=== PATIENT | female | born 1970 | race Caucasian/White ===

== ENCOUNTER 2024-10-19 11:49 | Emergency (ER) | payer MEDICAID, SELFPAY ==
[2024-10-19] VITALS (9 sets, daily range): BP systolic 121–145; BP diastolic 73–96; PULSE 66–94; RESP 16–18; TEMP 36.9–37.8; O2SAT 97–99
--- NOTE | ~2024-10-19 | CT_ITS ---
CT soft tissue neck w con Ordering provider: Jose Denton MD History: 54 years Female with . Dysphagia post spinal fusion x4 days prior . Comparison: None. Technique: CT soft tissues neck was performed with contrast. . The dose-length product was 419.56 mGy -cm. Findings: LOWER HEAD: The visualized brain parenchyma, optic globes/orbits and mastoids are normal. The visua lized paranasal sinuses are well aerated. SALIVARY GLANDS: Symmetric THYROID: Unremarkable SUPRAHYOID DEEP SPACES: Unremarkable CAROTID ARTERIES: Patent and symmetric JUGULAR VEINS: Patent and symmetric TONSILS: Unremarkable ORAL CAVITY: Partially obscured by dental amalgam but normal as visualized. PHARYNX, LARYNX AND TRACHEA: Patent and normal. Prevertebral soft tissue swelling is identified, prim arily to the right of midline without significant airway compromise. SUPERFICIAL SOFT TISSUES: Size asymmetry of both the musculature and superficial soft tissues of the right neck when compared to the left. The airway is patent. THORACIC INLET/VISUALIZED UPPER CHEST: Unremarkable. SKELETAL: Plate and screw anterior fixation of the spine at levels C3, C4, C5 and C6. Age appropriate degenerative changes. IMPRESSION: Prevertebral soft tissue swelling primarily to the right of midline without airway compromise. Size asymmetry of both the musculature and superficial soft tissues of the right neck when compared t o the left, primarily within the infraglottic larynx. Reviewed, dictated and finalized at location A. UNICATIONS ELECTRICIAN SUPERVISOR IMPRESSION: Prevertebral soft tissue swelling primarily to the right of midline without air way compromise. Size asymmetry of both the musculature and superficial soft tissues of the righ t neck when compared to the left, primarily within the infraglottic larynx.
--- OUTSIDE RECORDS SUMMARY | 2024-10-19 11:52 | XMS_ITS | Clinical Summary ---
Author Organization [facility] Address [address] [place] [address] Phone Care Team Providers Care Dietary Supervisor Name Role Phone Nomfc, External Provider Primary Care Provider U navailable Allergies Active Allergy Reactions Criticality Noted Date Comments Sulfasalazine Abdominal Pain Medium 08/08/2017 Tetracyclines Hives High 08/08/2017 Medications citalopram (CeleXA) 40 mg tablet Take 40 mg by mouth daily. Active levothyroxine 50 mcg tablet Take 50 mcg by mouth daily radiator specialist. Active clonazePAM (KlonoPIN) 1 mg tablet Take 1 mg by mouth 1 time daily as needed for Anxiety. Active cholecalciferol , Vitamin D3, 2,000 unit Tablet Take 4,000 Units by mouth daily. Active HYDROcodone-octavia taminophen (NORCO) 5-325 mg tablet Take 2 Tablets by mouth every 6 hours as needed for Pain. Max Daily Amount: 8 Tablets 20 Tablet 10/31/2017 Active ibuprofen (MOTRIN) 600 mg tablet Take 1 Tablet (600 mg) by mouth every 6 hours as needed for Other (See Comment) (Pain or Inflammation ). 60 Tablet 1 10/31/2017 Active docusate sodium (COLACE) 100 mg capsule Take 1 Capsule (100 mg) by mouth 2 times daily. 60 Capsule 1 10/31/2017 Active Active Problems Problem Noted Date Diagnosed Date Abnormal uterine bleeding (AUB) 10/30/2017 Social History Tobacco Use Types Packs/Day Years Used Date Smoking Tobacco: Every Day Cigarettes Smokeless Tobacco: Never Alcohol Use Standard Drinks/Week Comments Yes 0 (1 standard drink = 0.6 oz pur e alcohol) rare Comments No Sex and Gender Information Value Date Recorded Sex Assigned at Not on file Legal Sex Female 3:55 PM RN REHABILITATION Gender Identity Not on file Sexual Orientation Not on file Last Filed Vital Signs Vital Sign Reading Time Taken Comments Blood Pressure 101/63 10/31/2017 8:29 AM RN REHABILITATION Pulse 87 10/31/2017 8:29 AM RN REHABILITATION Temperature 37 C (98.6 F) 10/31/2017 8:29 AM RN REHABILITATION Respiratory Rate 16 10/31/2017 8:29 AM RN REHABILITATION Oxygen Saturation 99% 10/31/2017 8:29 AM RN REHABILITATION Inhaled Oxygen Concentration - - Weight 78.9 kg (174 lb) 10/30/2017 5:42 AM RN REHABILITATION Height 162.6 cm (5' 4 ) 10/30/2017 5:42 AM RN REHABILITATION Body Mass Index 29.87 10/30/2017 5:42 AM RN REHABILITATION Plan of Treatment Health Maintenance Due Date Last Done Comments DTAP/TDAP/TD VACCINES (1 - Tdap) 1988 HEPATITIS B VACCINES (1 of 3 - 19+ 3-dose series) 05/04 CERVICAL CANCER SCREENING 1999 BREAST CANCER SCREENING 2009 COLORECTAL SCREENING 2014 Colorectal Cancer Screening 2014 FIT-DNA Q 3 years 2014 FIT/FOBT Q 1 year 2014 Flex Sig/CT Colonography Q 5 years 2014 ZOSTER VACCINE (1 of 2) 2019 INFLUENZA VACCINE (#1) 2024 Medical Devices Implanted Type Area Ophthalmic Photographer Device Identifier Shelf Expiration Date Model / Serial / Lot Hemostat Geeta Surg Mph Pwd 3gm [id number] - [id number] Implanted:Qt y: 1 on 10/30/2017 by America Jones MD at [facility] Hemostatic N/A: Pelvis CR [employer] [id number] 06/30/2022 [id number] / / [id number] Insurance Member Subscriber Plan / Payer (Ef fective 2021-Present) Name:Fariba Bocanegra Relation to Subscriber:Self Name:Fariba Bocanegra Payer ID:[id number] (NAIC) Type:O Address: [facility] [id number] [place] [id number] Advance Directives For more information, please contact: [phone] * Full Code (Latest Code Status on File) Date Activated Date Inactivated Comments 10/30/2017 5:31 AM 10/31/2017 11:35 AM Care Teams Dietary Supervisor Relationship Specialty Start Date End Date Nom, External Provider PCP - General 10/23/17
--- NOTE | 2024-10-19 11:56 | ED.NECK ---
HPI - Neck Pain/Injury General Chief Complaint: Unspecified Stated Complaint: trouble swallowing Time Seen by Provider: 10/19/24 11:51 Source: patient Mode of arrival: ambulatory Limitations: no limitations History of Present Illness HPI Narrative: 54-year-old female with cervical vertebral instability status post C6-7 fusion, had C3-C6 fusion 10/16/2024. Postoperatively the patient had increased drainage from the wound. Today she presents to the ED with -- inability to swallow. she noticed it this morning as she was attempting to swallow her medication. -- Ongoing drainage from the incision site. -- No change in speech. No fever or chills. Her postoperative pain is improving. MD complaint: neck pain and other ( Dysphagia) Onset (ago): hour(s) ( 6 hours) Place: home Severity: moderate Relieving factors: none Exacerbating factors: none Context: other ( status post neck fusion) Associated symptoms: difficulty swallowing Treatments prior to arrival: none Related Data Allergies Allergy/AdvReac Type Severity Reaction Status Date / Time Sulfa (Sulfonamide Allergy Mild Unknown Verified 10/19/24 12:19 Antibiotics) tetracycline Allergy Mild Unknown Verified 10/19/24 12:19 Review of Systems Review of Systems: All systems reviewed & are unremarkable except as noted in HPI and below Constitutional: Constitutional: Reports as per HPI and Reports no additional constitutional complaints Eyes: Eyes: Reports as per HPI and Reports no additional eye complaints ENT: Reports system reviewed and no additional complaints, except as documented and Reports as per HPI Comments: dysphagia Cardiovascular: Cardiovascular: Reports as per HPI and Reports no additional cardiovascular complaints Respiratory: Respiratory: Reports as per HPI and Reports no additional respiratory complaints Gastrointestinal: Gastrointestinal: Reports as per HPI and Reports no additional gastrointestinal complaints Genitourinary: Genitourinary: Reports no additional female genitourinary complaints and Reports as per HPI Musculoskeletal: Musculoskeletal: Reports no additional musculoskeletal complaints and Reports as per HPI Comments: postop neck pain Integumentary/Breasts: Skin/Breast: Reports system reviewed and no additional complaints, except as docu and Reports as per HPI Neurologic: Reports system reviewed and no additional complaints, except as documented and Reports as per HPI Psychiatric: Psychiatric: Reports no additional psychiatric complaints and Reports as per HPI Endocrine: Endocrine: Reports no additional endocrine complaints and Reports as per HPI Hematologic/Lymphatic: Hematologic/Lymphatic: Reports no additional hematologic/lymphatic complaints and Reports as per HPI Allergic/Immunologic: Allergic/Immunologic: Reports no additional allergic/immunologic complaints and Reports as per HPI [facility] Past Medical History Medical History (Updated 10/19/24 @ 16:08 by Jose Denton MD) Cervical vertebral fusion Exam Narrative: afebrile blood pressure 139/96 Const: General: no acute distress Orientation/consciousness: patient oriented x3 Limitations: no limitations HENMT: Head: normal to inspection Ears: external ears normal Face/Nose/Sinus: Normal external nose present Face and sinus: normal facial exam Mouth: Yes Normal oral and palatal mucosa present Teeth and gingiva: dentition normal Throat: posterior oropharynx normal Eyes: Conjunctivae: conjunctivae normal Pupils: Equal, round and reactive pupils present EOM: EOMs intact bilaterally Direct Ophthalmoscopy: no photophobia Neck: Other: lower neck incision site is draining clear liquid. wound looks healthy. Chest: Chest palpation & inspection: normal inspection of the chest Resp: Effort & Inspection: normal respiratory effort Auscultation: clear to auscultation bilaterally Cardio: Rate: regular rate Rhythm: regular rhythm GI: GI Palp: Yes Soft to palpation Auscultation: normal bowel sounds : General: Yes no CVA tenderness Back/Spine/Pelvis: Back: no CVA tenderness Skin: General skin exam: normal color Rashes: no rashes Wounds: no wounds Neuro: General: patient oriented x3, moves all extremities, no meningeal signs and CN's II-XI intact bilaterally Cranial nerves: Yes Nystagmus not present Speech: normal speech Gait exam (Neuro): Normal gait present Extrem: General: normal to inspection and no clubbing, cyanosis or edema Psych: Mental Status: mental status grossly normal Affect: normal affect Attitude: cooperative Course Course Emergency Course: Status post cervical fusion dysphagia\ CT of the soft tissues of the neck revealed-- swelling of the right prevertebral soft tissue and the right infra glottic larynx. No event compromise noted. discussed with spine surgeon Dr. Clark. advised the patient to transfer to [facility] in [facility]. patient has had the wound and blood cultures done. Patient received 1 dose of Zosyn. Patient is leaving AMA. The patient has been explained the risks and consequences involved in leaving this facility at this time. Advised about the benefits of treatment and following up with her surgeon. The patient is mentally stable and is capable of making this decision. Vital Signs Vital signs: Vital Signs Temperature 36.9 C 10/19/24 11:52 Pulse Rate 94 10/19/24 11:52 Respiratory Rate 18 10/19/24 11:52 Blood Pressure 139/96 H 10/19/24 11:52 Pulse Oximetry 98 10/19/24 11:52 Oxygen Delivery Room Air 10/19/24 11:52 Temperature 37.8 C H 10/19/24 14:39 Pulse Rate 76 10/19/24 14:39 Respiratory Rate 16 10/19/24 14:39 Blood Pressure 124/91 H 10/19/24 14:39 Pulse Oximetry 97 10/19/24 14:39 Oxygen Delivery Room Air 10/19/24 14:39 MDM - Neck Pain/Injury MDM Narrative Medical decision making narrative: Postoperative right neck swelling without any airway compromise. Dysphagia watery discharge from the incision site Differential Diagnosis Differential diagnosis: Likely strain of neck muscle and other ( postoperative swelling) Lab Data Attestation: I reviewed the patient's lab results. 10/19/24 12:21 10/19/24 12:21 Labs: Lab Results 10/19/24 Range/Units 12:21 WBC 10.7 (4.8-10.8) K/mm3 RBC 3.41 L (4.20-5.40) M/mm3 Hgb 10.9 L (12.0-15.0) g/dL Hct 33.8 L (35.0-49.0) % MCV 99.1 (78.0-102.0) fL MCH 32.0 H (27.0-31.0) pg MCHC 32.2 (32-36) g/dL RDW 12.0 (11.6-14.4) % Plt Count 253 (150-420) K/mm3 MPV 9.1 L (9.2-11.8) fl Immature Gran % (Auto) 0.4 H (0.0-0.0) % Neut % (Auto) 71.4 H (50.0-70.0) % Lymph % (Auto) 19.4 (18.0-42.0) % [place] % (Auto) 6.6 (2.0-11.0) % Eos % (Auto) 1.7 (1.0-6.0) % Baso % (Auto) 0.5 (0.0-1.0) % Lymph # (Auto) 2.07 (1.10-4.50) K/mm3 [place] # (Auto) 0.70 (0.10-0.90) K/mm3 Eos # (Auto) 0.18 (0.02-0.50) K/mm3 Baso # (Auto) 0.05 (0.00-0.10) K/mm3 Abs Immat Gran (auto) 0.04 H (0.00-0.00) K/mm3 Absolute Neuts (auto) 7.63 H (1.70-7.20) K/mm3 Absolute Nucleated RBC 0.00 (0.00-0.00) K/mm3 Nucleated RBC % 0.0 (0-0.0) % Sodium 139 (136-145) mmol/L Potassium 4.0 (3.5-5.1) mmol/L Chloride 100 (98-108) mmol/L Carbon Dioxide 31 (21-32) mmol/L Anion Gap 8 (4-12) mmol/L BUN 6 L (7-18) mg/dL Creatinine 0.76 (0.55-1.02) mg/dL Estim Creat Clear Calc 63 ml/min Estimated GFR > 60 (59 - ) Glucose 90 (70-99) mg/dL Calculated Osmolality 285 (285-295) mOsm/kg Lactic Acid 0.8 (0.4-2.0) mmol/L Calcium 9.2 (8.5-10.1) mg/dL Total Bilirubin 0.5 (0.00-1.00) mg/dL AST 12 L (15-37) U/L ALT 14 (14-59) U/L Alkaline Phosphatase 65 (46-116) U/L Total Protein 7.5 (6.4-8.2) g/dL Albumin 3.5 (3.4-5.0) g/dL Discharge Plan Discharge Clinical Impression: Neck swelling, Status post cervical spinal fusion, Drainage from surgical wound Patient Disposition: Left Against Medical Advice Condition: Stable Instructions: Antibiotic Form, Dysphagia (ED) Patient Language: Welsh Follow-up/Referrals: Rob,Marta Mcintosh MD [Primary Care Provider] - Time of Disposition: 16:08
[2024-10-19] MEDS: LACTATED RINGERS 500 ML 999 ML IV CONT (12:14)
[2024-10-19 12:24] LABS: Basophils Absolute Auto 0.05 K/mm3 (0.00-0.10); Basophils Percent Auto 0.5 % (0.0-1.0); Eosinophils Absolute Auto 0.18 K/mm3 (0.02-0.50); Eosinophils Percent Auto 1.7 % (1.0-6.0); Hematocrit 33.8 % (35.0-49.0); Hemoglobin 10.9 g/dL (12.0-15.0); Immature Granulocyte Absolute 0.04 K/mm3 (0.00-0.00); Immature Granulocyte Percent A 0.4 % (0.0-0.0); Lymphocytes Absolute Auto 2.07 K/mm3 (1.10-4.50); Lymphocytes Percent Auto 19.4 % (18.0-42.0); Mean Corpuscular HGB Conc 32.2 g/dL (32-36); Mean Corpuscular Volume 99.1 fL (78.0-102.0); Mean Platelet Volume 9.1 fl (9.2-11.8); Monocytes Percent Auto 6.6 % (2.0-11.0); Neutrophils Absolute Auto 7.63 K/mm3 (1.70-7.20); Neutrophils Percent Auto 71.4 % (50.0-70.0); Platelet Count Result 253 K/mm3 (150-420); Red Blood Count 3.41 M/mm3 (4.20-5.40); White Blood Count 10.7 K/mm3 (4.8-10.8)
--- OUTSIDE RECORDS SUMMARY | 2024-10-19 12:33 | XMS_ITS | Clinical Summary ---
Author Organization [facility] Address [address] [place] [address] Phone Care Team Providers Care Printer'S Assistant Name Role Phone Nomfc, External Provider Primary Care Provider U navailable Allergies Active Allergy Reactions Criticality Noted Date Comments Sulfasalazine Abdominal Pain Medium 08/08/2017 Tetracyclines Hives High 08/08/2017 Medications citalopram (CeleXA) 40 mg tablet Take 40 mg by mouth daily. Active levothyroxine 50 mcg tablet Take 50 mcg by mouth daily rand butter. Active clonazePAM (KlonoPIN) 1 mg tablet Take [...] on file Legal Sex Female 3:55 PM BRAKE LINING MAKER Gender Identity Not on file Sexual Orientation Not on file Last Filed Vital Signs Vital Sign Reading Time Taken Comments Blood Pressure 101/63 10/31/2017 8:29 AM BRAKE LINING MAKER Pulse 87 10/31/2017 8:29 AM BRAKE LINING MAKER Temperature 37 C (98.6 F) 10/31/2017 8:29 AM BRAKE LINING MAKER Respiratory Rate 16 10/31/2017 8:29 AM BRAKE LINING MAKER Oxygen Saturation 99% 10/31/2017 8:29 AM BRAKE LINING MAKER Inhaled Oxygen Concentration - - Weight 78.9 kg (174 lb) 10/30/2017 5:42 AM BRAKE LINING MAKER Height 162.6 cm (5' 4 ) 10/30/2017 5:42 AM BRAKE LINING MAKER Body Mass Index 29.87 10/30/2017 5:42 AM BRAKE LINING MAKER Plan of Treatment Health Maintenance Due Date [...] (#1) 2024 Medical Devices Implanted Type Area Sheet Roller Operator Device Identifier Shelf Expiration Date Model / Serial / Lot Hemostat Geeta Surg Mph Pwd 3gm [id number] - [id number] Implanted:Qt y: 1 on 10/30/2017 by America Jones MD at [facility] Hemostatic N/A: Pelvis CR [employer] [id number] 06/30/2022 [id number] / / [id number] Insurance Member Subscriber Plan / Payer (Ef fective 2021-Present) Name:Fariba Bocanegra Relation to Subscriber:Self Name:Fariba Bocanegra Payer ID:[id number] (NAIC) Type:O Address: [facility] [address] [place] [id number] Advance Directives For more information, please contact: [phone] * Full Code (Latest Code Status on File) Date Activated Date Inactivated Comments 10/30/2017 5:31 AM 10/31/2017 11:35 AM Care Teams Printer'S Assistant Relationship Specialty Start Date End Date Nom, External Provider PCP - General 10/23/17
--- OUTSIDE RECORDS SUMMARY | 2024-10-19 12:33 | XMS_ITS | Encounter Summary ---
Author Organization [facility] Address [address] [place] [address] Care Team Providers Care Waste Chopper Name Role Phone Marta Rivas MD Primary Care Provider [phone] Reason for Referral * (Routine) - New Request Specialty Diagnoses / Procedures Referred By Contac t Referred To Contact Procedures OT Eval and Treat [facility] [address] [place] [address] Phone: tel: Referral ID Status Reason Start Date Expiration Date V isits Requested Visits Authorized [id number] New Request 10/17/2024 10/17/2025 1 1 IAL EDUCATION BUS DRIVER * (Routine) - Canceled Specialty Diagnoses / Procedures Referred By Contac t Referred To Contact Procedures PT Eval and Treat [facility] [address] [place] [address] Phone: tel: Referral ID Status Reason Start Date Expiration Date V isits Requested Visits Authorized [id number] Canceled 10/17/2024 10/17/2025 1 1 IAL EDUCATION BUS DRIVER Reason for Visit * Auth/Cert (Routine) Specialty Diagnoses / Procedures Referred By Contac t Referred To Contact Diagnoses CERVICAL MYELOPATHY Procedures ARTHRODESIS, ANTERIOR INTERBODY CERV BELOW C2 ARTHRODESIS ANTERIOR INTERBODY BELOW C2 EA ADD'L INSERT VERT FIX DEV,ANT,4-7 SGMTS INSJ BIOMECHANICAL DEVICE DISCECTOMY AND FUSION SPINAL ANTERIOR CERVICAL C3-6 Andrew Foster MD [address], [address] [place] [address] Phone: tel: fax: Referral ID Status Reason Start Date Expiration Date Visits Re quested Visits Authorized [id number] 1 1 Encounter Details Date Type Department Care Team (Latest Contact Info) Description 10/16/2024 6:22 AM SPECIAL EDUCATION BUS DRIVER - 10/18/2024 11:[address] [facility] Hospital Encounter [facility] [address] [place] [address] Andrew Foster MD [address], [address] [place] [address] Discharge Disposition: Home or Self Care (Routine Discharge) Social History Tobacco Use Types Packs/Day Years Used Date Smoking Tobacco: Former Cigarettes Smokeless Tobacco: Current Tobacco Cessation:Ready to Q uit: Not Asked; Counseling Given: Not Answered Comments:Vape, patient instructed not to vape 24 hours prior to procedure Alcohol Use Standard Drinks/Week Comments Not Currently 0 (1 standard drink = 0.6 oz pur e alcohol) [facility] Utilities Answer Date Recorded In the past 12 months has [facility] [employer], gas, oil, or water [employer] threatened to shut off services in your home? No 10/16/2024 Humiliation, Afraid, Rape, and Kick questionnair e Answer Date Recorded Within the last year, have y ou been afraid of your partner or ex-partner? No 10/16/2024 Within the last year, have y ou been humiliated or emotionally abused in other ways by your partner or ex-partner? No Within the last year, have y ou been kicked, hit, slapped, or otherwise physically hurt by your partner or ex-partner? No 10/16/2024 Within the last year, have y ou been raped or forced to have any kind of sexual activity by your partner or ex-partner? No 10/16/2024 Overall Financial Resource Strain (CARDIA) Answe r Date Recorded How hard is it for you to pa y for the very basics like food, housing, medical care, and heating? Not hard at all 10/16/2024 Hunger Vital Sign Answer Date Recorded Within the past 12 months, y ou worried that your food would run out before you got the money to buy more. Never true 10/16/19 25 Within the past 12 months, t he food you bought just didn't last and you didn't have money to get more. Never true 10/16/2024 PRAPARE - Transportation Answer Date Re corded In the past 12 months, has l ack of transportation kept you from medical appointments or from getting medications? No 10/04 In the past 12 months, has l ack of transportation kept you from meetings, work, or from getting things needed for daily living? No 10/16/2024 Housing Stability Vital Sign Answer Chacne e Recorded In the last 12 months, was t here a time when you were not able to pay the mortgage or rent on time? No 10/16/2024 In the past 12 months, how m any times have you moved where you were living? 0 10/16/2024 At any time in the past 12 m [facility], were you homeless or living in a detention (including now)? No 10/16/2024 Comments No Sex and Gender Information Value Date Recorded Sex Assigned at Female 10/16/2024 6:23 AM SPECIAL EDUCATION BUS DRIVER Legal Sex Female 5:52 PM SPECIAL EDUCATION BUS DRIVER Gender Identity Not on file Sexual Orientation Not on file documented as of this encounter Last Filed Vital Signs Vital Sign Reading Time Taken Comments Blood Pressure 141/72 10/18/2024 8:19 AM SPECIAL EDUCATION BUS DRIVER Pulse 73 10/18/2024 8:19 AM SPECIAL EDUCATION BUS DRIVER Temperature 36.8 C (98.2 F) 10/18/2024 8:19 AM SPECIAL EDUCATION BUS DRIVER Respiratory Rate 18 10/17/2024 4:36 AM SPECIAL EDUCATION BUS DRIVER Oxygen Saturation 97% 10/18/2024 8:19 AM SPECIAL EDUCATION BUS DRIVER Inhaled Oxygen Concentration - - Weight 64.9 kg (143 lb) 10/16/2024 7:15 AM SPECIAL EDUCATION BUS DRIVER Height 162.6 cm (5' 4 ) 10/16/2024 7:15 AM SPECIAL EDUCATION BUS DRIVER Body Mass Index 24.55 10/16/2024 7:15 AM SPECIAL EDUCATION BUS DRIVER documented in this encounter Functional Status * Question Answer Date of Assessment Author Status Do you have serious difficul ty walking or climbing stairs? No 10/16/2024 6:59 AM Kylie Smiley RN Active * Question Answer Date of Assessment Author Status Do you have difficulty dressing or bathing? No 10/16/2024 6:05 PM Shady Mayer RN A ctive Because of a physical, mental, or emotional condition, do you have difficulty doing errands alone such as visiting a doctor's office or shopping? No 10/16/2024 6:05 PM Shady Mayer RN Active * Are you deaf or do you have serious difficulty hearing Answer Date of Assessment Author Status No 10/16/2024 6:05 PM Shady Mayer RN Active * Are you blind or do you have serious difficulty seeing, even when wearing glasses? Answer Date of Assessment Author Status No 10/16/2024 6:05 PM Shady Mayer RN Active * Do you have serious difficulty walking or climbing stairs? Answer Date of Assessment Author Status No 10/16/2024 6:59 AM Kylie Smiley RN Active * Do you have difficulty dressing or bathing? Answer Date of Assessment Author Status No 10/16/2024 6:05 PM Shady Mayer RN Active * Because of a physical, mental, or emotional condition, do you have difficulty doing errands alone such as visiting a doctor's office or shopping? Answer Date of Assessment Author Status No 10/16/2024 6:05 PM hSady Mayer RN Active documented as of this encounter Mental Status * Question Answer Entry Date Author Status Because of a physical, mental, or emotional condition, do you have serious difficulty concentrating, remembering, or making decisions? No 10/16/2024 6:05 PM Shady Mayer RN A ctive * Because of a physical, mental, or emotional condition, do you have serious difficulty concentrating, remembering, or making decisions? Answer Entry Date Author Status No 10/16/2024 6:05 PM Shady Mayer RN Active documented in this encounter Medications at Time of Discharge buPROPion SR (WELLBUTRIN SR) 100 MG 12 hr tablet Take 1 tablet (100 mg total) by mouth daily. 10/13/2022 clonazePAM 1 MG tablet Take 1 tablet (1 mg total) by mouth 2 (two) times daily as needed for Anxiety. 02/14/2022 cyclobenzaprine (FLEXERIL) 10 MG tablet Take 1 tablet (10 mg total) by mouth 3 (three) times daily as needed for Muscle Spasms. 30 tablet 10/18/2024 famotidine (PEPCID) 40 MG tablet Take 1 tablet (40 mg total) by mouth nightly. gabapentin (NEURONTIN) 300 MG capsule Take 1 capsule (300 mg total) by mouth 3 (three) times daily. 90 capsule 10/18/2024 HYDROcodone-acetamin ophen (NORCO) 5-325 MG tabletIndications:Ac lisa Pain < 7 Day Supply Take 1-2 tablets by mouth every 4 (four) hours as needed. Indications: Acute Pain < 7 Day Supply 30 tablet 10/18/2024 levothyroxine 50 MCG tablet Take 1 tablet (50 mcg total) by mouth daily. 12/16/2021 ondansetron (ZOFRAN-ODT) 4 MG disintegrating tablet Take 1 tablet (4 mg total) by mouth every 8 (eight) hours as needed for Nausea. 20 tablet 01/09/2023 sertraline 100 MG tablet Take 1 tablet (100 mg total) by mouth 2 (two) times a day. 02/13/2022 traZODone 50 MG tablet Take 1 tablet (50 mg total) by mouth nightly as needed for Sleep. 02/20/2022 documented as of this encounter Progress Notes * Justina Delgadillo, PT - 10/17/2024 3:10 PM CSTSummary: PT Evaluation PT Initial Evaluation Discharge Recommendation: home with assistance Activity Recommendation for esl teacher: up with one 10/17/24 1400 Therapy Visit Ordering Provider MD Foster PT Received On 10/17/24 Subjective Pt supine in bed upon entering room 928. Pt agreeable to mobility. Reason for admission Pt s/p anterior discectomy and fusion C3-6 10/16. PMH: neck pain and arm weakness... order eval and treat activity up with assist Verified Two Patient Identifiers Yes Patient consents to therapy Yes Acute Inpatient PT Time Calculation PT Start Time 1408 PT Stop Time 1429 PT Time Calculation (min) 21 min Precautions Spine Precautions Bending;Lifting;Twisting General Precautions Fall Risk Other hemo vac Prior Function PLOF Comments PT lives with mom in a one story house with 5 TAM with HR. Pt was I with all self care and mobility. 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 Pain Pain Yes Pain Score 8 Location back of the neck; RN called and gave meds Interventions Re-direction;Re-positioning Activity Tolerance Limiting Factors to Endurance Dizziness;Pain Cognition Overall Cognitive Status WFL Orientation Level Oriented X4 Following Commands Follows all commands and directions without difficulty Comments PT alert and oriented. Sensation Additional Comments intact to light touch in bilat LE Overall Extremity Assessment Lower Extremity gross strength bilat LE 5/5 hip flex, knee ext, ankle DF Bed Mobility Supine to Sit Independent TRANSFERS Sit to Stand SBA/supervision Gait Gait Assistance SBA/supervision Assistive Device None Distance Ambulated (ft) 600 ft Other (Comment) Pt ambulates with step through pattern, unsteady throughout with lateral veering L/R. No significant LOB, but several episodes pt reports dizzy off feeling, requires lateral stepping for balance correction. Stairs Stair Management Assistance Contact guard assist Stair Management Technique One rail L;Alternating pattern Number of Stairs 3 Other (Comment) Ascending witih second step pt with a near LOB and posterior lean, uses hand rail for balance correction, close CGA. Reciprocal pattern. PT educated to slow down, take time, take one step at a time if feeling unsteady. Balance Sitting - Static Independent Sitting - Dynamic Independent Standing - Static SBA Standing - Dynamic SBA Other (Comment) no use of device, unsteady throughout session with lateral step and veering for balance correction. Pt reporting feeling dizzy or Off . Assessment Personal Factors/Comorbidities Impacting Care 3-4 personal factors/comorbidities Examination of Body Systems High (at least 4 Elements) Objectives of Body Systems Impaired balance;Impaired stair negotiation;Decreased LE strength;Decreased endurance Clinical Presentation of Patient Unpredictable and unstable characteristics Complexity Level of Evaluation High Prognosis Good Discharge Recommendation PT Recommendation Home with assistance Plan PT Treatments/Interventions Gait Training;Manual Therapy;Therapeutic Exercises;Therapeutic Activities;Neuromuscular re-education;Patient/family training PT Frequency 6 times/week PT - Next Appointment 10/17/24 If this is the last treatment note,it will serve as the discharge summary Yes End of Session End of Session Safety Call light within reach;Nursing aware of session;Transfer status education Assessment: Pt is 54 yo female admitted with spine fusion. Prior to admission pt was independent with all ADLs and functional mobility. Pt demonstrates impaired activity tolerance, balance, LE strength and overall functional mobility. Pt would benefit from further therapy during admission to address deficits and maximize safety and independence with functional mobility. Anticipate pt to return home with family assist when medically stable. The below POC to be followed the duration of this admission. Pt. will be able to perform supine to/from sitting at EOB with Independent to improve mobility. 2. Pt. will be able to perform sit to/from standing with Independent using wheeled walker to improve independence. 3. Pt. will be able to ambulate 600 feet with Independent using wheeled walker to help improve strength and functional independence. 4. Pt. will be able to maintain static sitting balance for 5-10 minutes with Independent to improveindependence. 5. Pt. will be able to maintain dynamic sitting balance on soft surface with Independent to improvefunctional mobility. 6. Pt. will be able to maintain static standing balance 5-10 minutes with Independent using wheeledwalker to improve independence. 7. Pt. will be able to maintain dynamic standing balance during side-stepping L/R and marching withIndependent using wheeled walker to improve functional mobility. 8. Pt. will be able to ascend/descend 3 steps with Modified Sweet using handrail(s) to increase strength and to safely access home at D/C. Education: Primary Learners Name: Fariba Bocanegra Primary Language of learner: [place]guill[place] Patient was educated on precautions exercises transfers ADLs balance bed mobility equipment therapy plan gait safety stair training. Education was completed one to one verbal hands-on demonstration this date. Preference of learning new concepts one to one verbal hands-on demonstration Barriers to education this date were physical impairment. Response to education this date verbalized understanding. IAL EDUCATION BUS DRIVER * Magnus Roa - 10/17/2024 2:40 PM CST Patient assessed for emotional/spiritual needs and well-being, Patient's Disposition/People present: patient alert / mother presented Patient's support system: parent and family Worship Affiliation/Spiritual Background: Scientologist Michelle community: [employer] - OTHER Notification of michelle community desired: No [2] Needs identified: Concern for health condition Interventions: Spiritual Care facilitated patient in attaining their spiritual goals by: Spiritual: Providing listening Offering prayer/blessing Emotional: Demonstrating acceptance of patient and mother Offering emotional support to patient and mother Follow up Needed: No Patient indicates contentment regarding emotional/spiritual well-being and will request a induction coordination power engineer if needs arise. IAL EDUCATION BUS DRIVER * Charlene Guillen, OT - 10/17/2024 2:29 PM CSTSummary: OT Eval OT Initial Evaluation Discharge Recommendation: home with assistance No skilled OT Activity Recommendation for esl teacher: up to chair for all meals, walking into the bathroom and walking in the halls with SBA using no AD 10/17/24 1408 Therapy Visit OT Received On 10/17/24 Reason for admission Pt s/p anterior discectomy and fusion C3-6 10/16. PMH: neck pain and arm weakness... order eval and treat activity up with assist Ordering Provider MD Foster Verified Two Patient Identifiers Yes Patient consents to therapy Yes Acute Inpatient OT Time Calculation OT Start Time 1408 OT Stop Time 1429 OT Time Calculation (min) 21 min Precautions Spine Precautions Bending;Lifting;Twisting General Precautions Fall Risk Other hemovac drain anterior neck; c-spine precautions Subjective Subjective RN gave ok prior to therapy evaluations. Pt agreeable to therapy evaluations and provided PLOF information. Prior Function PLOF Comments Pt lives with mom in a one story house with 5 TAM with HR. Pt was I with all self care and mobility. 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 Pain Pain Yes Pain Score 8 Location posterior neck Interventions Informed RN;Re-direction;Re-positioning (RN gave pain meds and muscle relaxer prior to mobility) Objective Objective Pt seen in room 928. Pt in bed upon ent. Gait belt used for all functional mobility. Pt up in chair with call light nearby and chair alarm on upon ext. Pt's mom present throughout, but sleeping. Activity Tolerance Endurance Quality Good Limiting Factors to Endurance Dizziness;Pain Vision - Basic Assessment Current Vision Wears glasses Vision - Complex Assessment Additional Comments No new visual deficits reported Cognition Overall Cognitive Status WFL Arousal/Alertness Appropriate responses to stimuli Attention Span Appears intact Memory Appears intact Orientation Level Oriented X4 Following Commands Follows all commands and directions without difficulty Safety Judgment Good awareness of safety precautions Awareness of Errors Good awareness of errors made Deficits Fully aware of deficits Problem Solving Able to problem solve independently Comments Pt alert and oriented. Pt pleasant and cooperative throughout. Pt with good understanding of c-spine precautions, as she has had previous c-spine surgeries. Overall Extremity Assessment Upper Extremity WFL B UE within precautions. Pt reports prior R UE weakness, although functional this date Hand Function Hand Dominance Right Gross Grasp Functional Coordination Functional Sensation Light Touch No apparent deficits ADL Eating/Feeding Assistance Independent;Sitting in chair Eating/Feeding Comment Pt reporting some difficulty swallowing. RN aware Grooming Assistance Stand by;Standing at sink Grooming Deficit Wash/dry hands LE Dressing Assistance Independent;In bed LE Dressing Deficit Don/doff R sock;Don/doff L sock Toileting Assistance Stand by Bed Mobility Supine to Sit Independent Functional Transfers Sit to Stand SBA/supervision Toilet Transfers Grab bars;Supervision Functional Mobility Pt completed functional room/bathroom/hallway mobility to simulate home and community environments with SBA using no AD. Pt with occasional sway in balance, but no overt LOB and able to self correct. Balance Sitting - Static Independent Sitting - Dynamic Independent Standing - Static SBA Standing - Dynamic SBA Proprioception Proprioception No apparent deficits Assessment Occupational Profile and History Complexity Moderate (Expanded) Performance Deficit Level Low (1-3 deficits) Clinical Decision Making Moderate (min/mod modifications) Complexity Level of Evaluation Low Prognosis Good OT Assess/Eval Other (Comment) Pt is a 54-year-old female admitted for planned ACDF C3-C6. OT evaluation completed 10/17/2024. Pt is completing all ADLS and functional mobility with minimal difficulty. Pt voices no concerns for ADLS or functional mobility upon discharge. Will defer to PT for balancetraining. No further skilled OT needs identified. OT will sign off at this time. Pt would benefit from return home wtih increased assist as needed. Thank you for the consult. Please send new orders if pt has a change in medical status. Patient/Family Training Other (Comment) Pt educated on c-spine precautions, gentle neck ROM, relaxing UE muscles, positioning for pain relief, and use of ice/heat. Pt verbalized understanding. Discharge Recommendation OT Recommendation Home with assistance;No skilled OT No Skilled OT No acute OT goals identified Plan Progress Discontinue OT OT - Next Appointment 10/17/24 If this is the last treatment note, it will serve as the discharge summary Yes End of Session End of Session Safety Call light within reach;Family/friend present with patient;Nursing aware of session;Transfer status education Education: Patient was educated on precautions therapy plan safety. Preference of learning new concepts verbal Barriers to education this date were none. Response to education this date verbalized understanding. By: NO Jackman, OTR/L; 10/17/24 IAL EDUCATION BUS DRIVER * Kimmy Abdi RN - 10/17/2024 2:27 PM CST 10/17/24 1424 Interdisciplinary Group Conference Team Members Present Physician;Case/Care management;Nursing (Dr. Foster) Patient Current Status Paient current status Inpatient Barriers to Discharge Inpatient Review Barriers to Discharge Inpatient Complex - Social and/or Medical Complex - Social and/or Medical follow up CM following post surgical recovery plan to include pt/oteval. Not yet ordered this am/CM has placed order. Pt was assigned to Pt. No PT notes as of this writing. 1428 IAL EDUCATION BUS DRIVER IAL EDUCATION BUS DRIVER IAL EDUCATION BUS DRIVER documented in this encounter Nursing Notes * Iván Granados RN - 10/16/2024 12:34 PM CST Patient had 3 earrings in her right ear that she was unable to remove. I was able to remove 1 of them. We put tape over her right ear. She also had a lip ring that she could not remove and we also could not remove. We also placed tape over the lip ring. IAL EDUCATION BUS DRIVER documented in this encounter OR Notes * Op Note - Andrew Foster MD - 10/16/2024 3:21 PM CST OPERATIVE RECORD DATE OF PROCEDURE: 09/04/24 SURGEON: Andrew Foster MD CNC MILLING MACHINE OPERATOR: Duncan Beard PREOPERATIVE DIAGNOSES: Herniated disk with myelopathy and radiculopathy C3-4, C4-5, C5-6 POSTOPERATIVE DIAGNOSES: Herniated disk with myelopathy and radiculopathy C3-4, C4-5, C5-6 PROCEDURE: Arthrodesis, anterior interbody, including disc space preparation, discectomy, osteophytectomy and decompression of spinal cord and nerve roots; C3-4(66890) Anterior instrumentation; vertebral segments (C3-C4-C5-C6) (57605) Arthrodesis, anterior interbody, including disc space preparation, discectomy, osteophytectomy and decompression of spinal cord and nerve roots; additional interspace C4-5 (04014) Arthrodesis, anterior interbody, including disc space preparation, discectomy, osteophytectomy and decompression of spinal cord and nerve roots; additional interspace C5-6 (30624) Placement of biomechanical interbody device without integral anterior instrumentation C3-4 Placement of biomechanical interbody device without integral anterior instrumentation C4-5 Placement of biomechanical interbody device without integral anterior instrumentation C5-6 INDICATIONS:This is a patient who presents with severe pain in their neck radiating into their arm.An MRI scan showed that the patient had large osteophytes and disc herniations compressing the spinal cord at C3-4, C4-5, C5-6 It was decided to take her to the OR for a decompression and fusion. I have had a long discussion with the patient and family concerning the nature of the problem, the alternatives to surgery and the risks and benefits of surgery. We discussed the benefits of surgery which include relief of radiculopathy, neck pain and myelopathic symptoms. We discussed the risks of surgery which include the risks of infection, hemorrhage, spinal cord damage (ranging anywhere froma minor, temporary deficit to a major, permanent deficit), anesthesia complications and medical complications. We discussed the risk of non-fusion, the risk of hoarseness (which could be either temporary or permanent), and the risk of difficulty swallowing (which could be either temporary or permanent). We also discussed the risks of not having surgery. They understand all of this and agree to surgery. OPERATIVE TECHNIQUE: The patient was brought to the operating room and a surgical time out was performed to establish the identity of the patient, the procedure to be performed (including the laterality), the drugs or devices to be used and deep vein thrombosis prophylaxis measures taken. General anesthesia was induced. The patient was positioned on the operating table in the supine position. The patient's neck was shaved and prepped and draped in the usual sterile fashion. A curvilinear incision was made at approximately the level of C4-C5 and hemostasis was achieved with bipolar coagulation and retraction. A dissection was made of the soft tissue with the Bovie knife, through the platysma until the plane between the sternocleidomastoid and strap muscles was identified. A dissection was made in this plane to the anterior part of the spine. The levels were confirmed using X Ray. Thelongus coli muscles were dissected off the anterior part of the spine and the self-retaining retractors were put into place so that the blades were anchored on the longus coli muscles. The dissection continued at C3-4. Disc material and osteophytes were removed with currettes and kerrison rongeurs. The pin distraction system was then used to distract this level. Additional disc material was then removed. The posterior longitudinal ligament was visualized. Also, osteophytes, both superior and inferior were observed. The high-speed drill was used to drill off the inferior part ofthe end plate of C3 and the superior part of the end plate of C4. The osteophytes were also drilledboth in the midline and bilaterally into the foramen. These were then removed with the microsurgical Kerrison rongeur. The posterior longitudinal ligament was then incised with microsurgical dissection and removed with microsurgical Kerrison rongeurs. This allowed for an excellent decompression of the thecal sac and nerve roots, including a bilateral foramenotomy. A titanium biomechanical interbody device that did not have integral anterior instrumentation was then sized and selected and filled with osteogenic bone matrix. This was placed into the defect and the distraction was removed. The graft was found to be firmly in place. The dissection continued at C4-5. Disc material and osteophytes were removed with currettes and kerrison rongeurs. The pin distraction system was then used to distract this level. Additional disc material was then removed. The posterior longitudinal ligament was visualized. Also, osteophytes, both superior and inferior were observed. The high-speed drill was used to drill off the inferior part ofthe end plate of C4 and the superior part of the end plate of C5. The osteophytes were also drilledboth in the midline and bilaterally into the foramen. These were then removed with the microsurgical Kerrison rongeur. The posterior longitudinal ligament was then incised with microsurgical dissection and removed with microsurgical Kerrison rongeurs. This allowed for an excellent decompression of the thecal sac and nerve roots, including a bilateral foramenotomy. A titanium biomechanical interbody device that did not have integral anterior instrumentation was then sized and selected and filled with osteogenic bone matrix. This was placed into the defect and the distraction was removed. The graft was found to be firmly in place. The dissection continued at C5-6. Disc material and osteophytes were removed with currettes and kerrison rongeurs. The pin distraction system was then used to distract this level. Additional disc material was then removed. The posterior longitudinal ligament was visualized. Also, osteophytes, bothsuperior and inferior were observed. The high-speed drill was used to drill off the inferior part of the end plate of C5 and the superior part of the end plate of C6. The osteophytes were also drilled both in the midline and bilaterally into the foramen. These were then removed with the microsurgical Kerrison rongeur. The posterior longitudinal ligament was then incised with microsurgical dissection and removed with microsurgical Kerrison rongeurs. This allowed for an excellent decompression ofthe thecal sac and nerve roots, including a bilateral foramenotomy. A titanium biomechanical interbody device that did not have integral anterior instrumentation was then sized and selected and filled with osteogenic bone matrix. This was placed into the defect and the distraction was removed. The graft was found to be firmly in place. Hemostasis was achieved. A titanium plate was then sized and selected and placed into the wound. This was secured to the body of C3, C4, C5, C6 using titanium screws for anterior fixation because our interbody devices did not have their own integral anterior instrumentation. An x-ray showed excellent placement of the graftand plate and screws. Hemostasis was achieved. The muscle was closed with 3-0 Vicryl and the subcutaneous tissue was closed with 3-0 Vicryl. The skin was closed with 4-0 Monocryl and Steri-strips. A sterile dressing was applied and the patient was allowed to awaken from general anesthesia. The patient was brought to the recovery room in good condition. FINDINGS: Herniated disk with myelopathy and radiculopathy C3-4, C4-5, C5-6 ESTIMATED BLOOD LOSS: 100 mL SPECIMEN(S) REMOVED: Disc and bone [employer]UC[employer] DRIVER documented in this encounter Plan of Treatment Not on file documented as of this encounter Procedures Procedure Name Priority Date/Time Associated Diagnosis Comments HEMOGLOBIN AND HEMATOCRIT Routine 10/16/2024 6:12 PM [employer] DRIVER BASIC METABOLIC PANEL Routine 10/16/2024 6:12 PM [employer] DRIVER SURG XR FLUOROSCOPY Routine 10/16/2024 2 :28 PM [employer]UCATION [employer] DRIVER documented in this encounter Results * (ABNORMAL) BASIC METABOLIC PANEL (10/16/2024 6:12 PM [employer] EDUCATION [employer] DRIVER) SODIUM S/P/B 139 136 - 145 MMOL/L 10/16/2024 6:51 PM [employer] DRIVER [facility] POTASSIUM S/P/B 3.7 3.5 - 5.1 MMOL/L 10/16/2024 6:51 PM [facility] CHLORIDE S/P/B 108 97 - 115 MMOL/L 10/16/2024 6:51 PM [facility] CO2 27.0 21.0 - 32.0 MMOL/L 10/16/2024 6:51 PM [facility] GLUCOSE 126(H) 74 - 106 MG/DL 10/16/2024 6:51 PM [facility] BUN 10 7 - 18 MG/DL 10/16/2024 6:51 PM [facility] CREATININE S/P/B 0.90 0.55 - 1.02 MG/DL 10/16/2024 6:51 PM [facility] CALCIUM S/P/B 8.9 8.5 - 10.1 MG/DL 10/16/2024 6:51 PM [employer] DRIVER [facility] ANION GAP 4.0 2.0 - 10.0 MMOL/L 10/16/2024 6:51 PM [facility] OSMOLALITY (CALC) 289 MOSM/KG 025 6:51 PM [facility] Comment:REFERENCE RANGE NOT ESTABLISHED GFR ESTIMATE 75(L) >90 ML/MIN/1. 73 M2 10/16/2024 6:51 PM [employer] DRIVER [facility] GFR NOTES GFR REFERENCE S: 10/16/2024 6:51 PM [facility] Comment: THE ESTIMATED GFR IS CALCULATED USING THE 2020 CKD-EPI EQUATION. THE FOLLOWING CATEGORIES FOR GRADING RENAL FUNCTION ARE RECOMMENDED BY THE [employer]IETY OF NEPHROLOGY (KDIGO 2012 CLINICAL PRACTICE GUIDELINE). G1,NORMAL OR HIGH: >89 ml/min/1.73 m2 G2,MILDLY DECREASED: 60-89 ml/min/1.73 m2 G3A,MILDLY TO MODERATELY DECREASED: 45-59 ml/min/1.73 m2 G3B,MODERATELY TO SEVERELY DECREASED: 30-44 ml/min/1.73 m2 G4,SEVERELY DECREASED: 15-29 ml/min/1.73 m2 G5,KIDNEY FAILURE: <15 ml/min/1.73 m2 10/16/2024 6:12 PM [employer] EDUCATION [employer] DRIVER us Duncan Beard MD LABORATORY Final Resu lt [facility] [address] [place] [id number], [id number] * HEMOGLOBIN AND HEMATOCRIT (10/16/2024 6:12 PM [employer] EDUCATION [employer] DRIVER) HGB 12.1 12.0 - 16.0 G/DL 10/16/2024 6:21 PM [employer] DRIVER [facility] HCT 36.8 36.0 - 47.0 % 10/16/2024 6:21 PM [employer] EDUC[employer] DRIVER [facility] 10/16/2024 6:12 PM [employer]UCATION [employer] DRIVER Duncan Beard MD LABORATORY Final Resu lt [facility] [address] [place] [address], [phone] * SURG XR FLUOROSCOPY (10/16/2024 2:28 PM [employer] EDUCATION [employer] DRIVER) Anatomical Region Laterality Modality Undefined Radio Fluoroscop y 10/16/2024 12:4 9 PM [employer]UCATION [employer] DRIVER Narrative 10/16/2024 12:49 PM [employer] EDUCATION [employer] DRIVER This report does not contain a radiologist's interpretation. Please review associated procedure and/or operative report. Procedure Note Angela Garcia MD - 10/16/2024 This report does not contain a radiologist's interpretation. Please review associated procedure and/or operative report. Andrew Foster MD IMAGES ONLY Final Result documented in this encounter Visit Diagnoses Diagnosis Cervical myelopathy ([facility] HHS/HCC)- Primary Cervical spondylosis with myelopathy Cervical myopathy Myopathy, unspecified Cervical myopathy Myopathy, unspecified documented in this encounter Admitting Diagnoses Diagnosis Cervical myelopathy ([facility] HHS/HCC) Cervical spondylosis with myelopathy Cervical myopathy Myopathy, unspecified documented in this encounter Administered Medications Inactive Administered Medications - up to 3 most recent administrations Medication Order MAR Action Action Date Dose Rate Site acetaminophen (TYLENOL) tablet 650 mg 650 mg, Oral, Every 6 hours PRN, Mild pain (Scale 1 - 3), Starting on Corin 10/16/24 at 1704, Until 10/18/24 at 1332, Maximum dose of acetaminophen is 4000 mg from all sources in 24 hours., Post-Op bisacodyl (DULCOLAX) suppository 10 mg 10 mg, Rectal, Daily as needed, Constipation, Starting on Corin 10/16/24 at 1704, Until 10/18/24 at 1332, Post-Op buPROPion (WELLBUTRIN) tablet 100 mg 100 mg, Oral, Daily, First dose on Sun10/17/24 at 0900, Until Discontinued Given 10/18/2024 9:29 AM [employer]UC[employer] DRIVER 100 mg Given 10/17/2024 9:07 AM [employer]UCATION [employer] DRIVER 100 mg ceFAZolin (ANCEF) 2 g in sodium chloride 0.9 % 50 mL IVPB 2 g, Intravenous, at 200 mL/hr, Every 8 hours, 2 doses, First dose on Corin 10/16/24 at 2000, Last dose on Sun10/17/24 at 0400, Give 2 gram dose for patients less than 120 kg. PHARMACY TO ADJUST administration times based on pre-op/intra-op dose. Do NOT continue greater than 24 hours after anesthesia end time., Post-Op New Bag 10/17/2024 5:11 AM [employer] EDUCATION [employer] DRIVER 2 g 200 mL/hr New Bag 10/16/2024 8:27 PM [employer] EDUCATION [employer] DRIVER 2 g 200 mL/hr chlorhexidine (PERIDEX) 0.12 % solution 15 mL 15 mL, Mouth/Throat, Once, 1 dose, On Corin 10/16/24 at 0715, Patient to perform oral care first. Swish/gargle in mouth for 30 seconds, and then discard prior to going to surgery. If ventilated use saturated swab to clean oral cavity., Pre-Op Given 10/16/2024 7:22 AM [employer] EDUCATION [employer] DRIVER 15 mLs cyclobenzaprine (FLEXERIL) tablet 10 mg 10 mg, Oral, 3 times daily PRN, Muscle Spasms, Starting on Corin 10/16/24 at 1704, Until 10/18/24 at 1332, If diazepam (VALIUM) also ordered, alternate doses., Post-Op Given 10/18/2024 9:29 AM [employer]UCATION [employer] DRIVER 10 mg Given 10/17/2024 2:14 PM [employer]UCATION [employer] DRIVER 10 mg Given 10/16/2024 6:36 PM [employer]UCATION [employer] DRIVER 10 mg famotidine (PEPCID) tablet 40 mg 40 mg, Oral, Nightly, First dose on Corin 10/16/24 at 2100, Until Discontinued Given 10/17/2024 8:18 PM [employer]UCATION [employer] DRIVER 40 mg Given 10/16/2024 8:27 PM [employer] EDUCATION [employer] DRIVER 40 mg fentaNYL (SUBLIMAZE) injection 25 mcg 25 mcg, Intravenous, Every 5 min PRN, Moderate pain (Scale 4 - 7), 4 doses, Starting on Corin 10/16/24 at 1525, Until Corin 10/16/24 at 1725, Maximum cumulative dose 100 mcg. Do not administer if patient is overly sedated, SpO2 less than 90%, or Respiratory Rate less than 12. If more than one IV analgesic is ordered per pain level, use in this order: fentaNYL, morphine, HYDROmorphone. If desired pain control is not reached, move to next ordered medication at next dosing interval., PACU Given 10/16/2024 4:12 PM [employer]UCATION [employer] DRIVER 25 mcg Given 10/16/2024 3:51 PM [employer] EDUCATION [employer] DRIVER 25 mcg gabapentin (NEURONTIN) capsule 300 mg 300 mg, Oral, 3 times daily, First dose on Corin 10/16/24 at 1730, Until Discontinued, Pharmacist to adjust dose/frequency for renal function, Post-Op Given 10/18/2024 9:19 AM [employer]UCATION [employer] DRIVER 300 mg Given 10/17/2024 8:18 PM [employer] EDUCATION [employer] DRIVER 300 mg Given 10/17/2024 5:17 PM [employer] EDUCATION [employer] DRIVER 300 mg HYDROcodone-acetaminophen (NORCO) 5-325 MG tablet 2 tablet 2 tablet, Oral, Every 4 hours PRN, Moderate pain (Scale 4 - 7), 1-2 tablets, Starting on Corin 10/16/24 at 1704, Until 10/18/24 at 1332, Maximum dose of acetaminophen is 4000 mg from all sources in 24 hours., Post-Op Given 10/18/2024 9:29 AM [employer] EDUCATION [employer] DRIVER 2 tablets Given 10/18/2024 4:15 AM SPECIAL EDUCATION [employer] DRIVER 2 tablets Given 10/17/2024 8:18 PM [employer] EDUCATION [employer] DRIVER 2 tablets HYDROmorphone (DILAUDID) injection 0.3 mg 0.3 mg, Intravenous, Every 4 hours PRN, Other, Breakthrough pain, Starting on Corin 10/16/24 at 1536, Until 10/18/24 at 1332, Administer slowly over at least 2-3 minutes. HYDROmorphone (DILAUDID) injection 0.4 mg 0.4 mg, Intravenous, Every 15 min PRN, Severe pain (Scale 8 - 10), 5 doses, Starting on Corin 10/16/24 at 1525, Until Corin 10/16/24 at 1725, Maximum cumulative dose 2 mg. Do not administer if patient is overly sedated, SpO2 less than 90%, or Respiratory Rate less than 12. If more than one IV analgesic is ordered per pain level, use in this order: fentaNYL, morphine, HYDROmorphone. If desired pain control is not reached, move to next ordered medication at next dosing interval., PACU Given 10/16/2024 5:05 PM [employer] EDUCATION [employer] DRIVER 0. 4 mg Given 10/16/2024 4:45 PM [employer] EDUCATION [employer] DRIVER 0.4 mg Given 10/16/2024 4:22 PM [employer] EDUCATION [employer] DRIVER 0.4 mg levothyroxine (SYNTHROID) tablet 50 mcg 50 mcg, Oral, Daily, First dose on Sun10/17/24 at 0900, Until Discontinued, Avoid iron, calcium, and antacids within 4 hours of administration. Given 10/18/2024 9:19 AM [employer] EDUCATION [employer] DRIVER 50 mcg Given 10/17/2024 9:10 AM SPECIAL EDUCATION BUS DRIVER 50 mcg hcpvhfcpn-dqcrcjsv-jrzowayxhta (MYLANTA MAXIMUM STRENGTH) 9694-9182-792 mg/30mL suspension 10 mL, Oral, Every 4 hours PRN, Indigestion, Heartburn, Starting on Corin 10/16/24 at 1704, Until 10/18/24 at 1332, Shake Well, Post-Op naLOXone (NARCAN) injection 0.4 mg 0.4 mg, Intravenous, As needed, Opioid reversal, If patient exhibits somnolence and/or excessive sedation or if respirations fall below 8 per minute, 2 doses, Starting on Corin 10/16/24 at 1534, Until 10/18/24 at 1332, Administer every 2 minutes as needed for 2 doses. IM administration: Anterolateral aspect of thigh normal saline 0.9 % flush 3-10 mL 3-10 mL, Intravenous, Every 8 hours, First dose on Corin 10/16/24 at 1730, Until Discontinued, Post-Op Given 10/18/2024 9:20 AM [employer]UCATION [employer] DRIVER 10 mLs Given 10/17/2024 6:15 PM [employer]UCATION [employer] DRIVER 10 mLs Given 10/16/2024 11:02 PM [employer] EDUCATION [employer] DRIVER 10 mLs normal saline 0.9 % flush 3-10 mL 3-10 mL, Intravenous, As needed, Line care, Starting on Corin 10/16/24 at 1704, Until 10/18/24 at 1332, Post-Op ondansetron (ZOFRAN) injection 4 mg 4 mg, Intravenous, Every 8 hours PRN, Nausea, Vomiting, Starting on Corin 10/16/24 at 1704, Until 10/18/24 at 1332, IV push over 2-5 minutes., Post-Op oxyCODONE immediate release (ROXICODONE) tablet 5 mg 5 mg, Oral, Once as needed, Mild pain (Scale 1 - 3), 1 dose, Starting on Corin 10/16/24 at 1525, Until Corin 10/16/24 at 1553, Do not administer if patient is overly sedated, SpO2 LESS than 90%, or Respiratory Rate LESS than 12., PACU Given 10/16/2024 3:53 PM [employer] EDUCATION [employer] DRIVER 5 mg senna-docusate (SENOKOT-S) 8.6-50 MG tablet 1 tablet 1 tablet, Oral, Nightly PRN, Constipation, May repeat X 1 if no BM or discomfort, Starting on Corin 10/16/24 at 1704, Until 10/18/24 at 1332, Post-Op senna-docusate (SENOKOT-S) 8.6-50 MG tablet 1 tablet 1 tablet, Oral, 2 times daily, First dose on Corin 10/16/24 at 2100, Until Discontinued Given 10/18/2024 9:19 AM [employer] EDUCATION [employer] DRIVER 1 tablet Given 10/17/2024 8:18 PM [employer] EDUCATION [employer] DRIVER 1 tablet Given 10/17/2024 9:10 AM [employer] EDUCATION [employer] DRIVER 1 tablet sertraline (ZOLOFT) tablet 100 mg 100 mg, Oral, 2 times daily, First dose on Sun10/17/24 at 1130, Until Discontinued Given 10/18/2024 9:19 AM [employer] EDUCATION [employer] DRIVER 100 mg Given 10/17/2024 8:18 PM [employer] EDUCATION [employer] DRIVER 100 mg Given 10/17/2024 11:51 AM [employer] EDUCATION [employer] DRIVER 100 mg sodium chloride 0.9% infusion at 20 mL/hr, Intravenous, Continuous, Starting on Sun10/16/24 at 1600, Until 10/18/24 at 1332, At TKO rate if no current IV is infusing documented in this encounter Active and Recently Administered Medications Times are shown in SPECIAL EDUCATION BUS DRIVER. Scheduled Medication Order 10/16/2024 10/17/2024 10/18/2024 buPROPion (WELLBUTRIN) tablet 100 mg 100 mg, Oral, Daily, First dose on Sun10/17/24 at 0900, Until Discontinued 906 (Given - Provider: Shady Brown RN) 928 (Given - Provider: Karla Lundberg, Nurse Research Home Economist II) ceFAZolin (ANCEF) 2 g in sodium chloride 0.9 % 50 mL IVPB (COMPLETED) 2 g, Intravenous, at 200 mL/hr, Once, 1 dose, On Corin 10/16/24 at 0715, Pre-Op 1159 (New Bag - Provider: Flakito Hyatt CRNA)1214 (Infusion Stop Time - Provider: Flakito Hyatt CRNA) ceFAZolin (ANCEF) 2 g in sodium chloride 0.9 % 50 mL IVPB (COMPLETED) 2 g, Intravenous, at 200 mL/hr, Every 8 hours, 2 doses, First dose on Corin 10/16/24 at 2000, Last dose on Sun10/17/24 at 0400, Give 2 gram dose for patients less than 120 kg. PHARMACY TO ADJUST administration times based on pre-op/intra-op dose. Do NOT continue greater than 24 hours after anesthesia end time., Post-Op 2026 (New Bag - Provider: Fariba Ramos RN)2256 (Infusion Stop Time - Provider: Fariba Ramos RN) 0511 (New Bag - Provider: Fariba Ramos RN)0626 (Infusion Stop Time - Provider: Fariba Ramos RN) chlorhexidine (PERIDEX) 0.12 % solution 15 mL (COMPLETED) 15 mL, Mouth/Throat, Once, 1 dose, On Corin 10/16/24 at 0715, Patient to perform oral care first. Swish/gargle in mouth for 30 seconds, and then discard prior to going to surgery. If ventilated use saturated swab to clean oral cavity., Pre-Op 07 (Given - Provider: Kylie Beltran RN) famotidine (PEPCID) tablet 40 mg 40 mg, Oral, Nightly, First dose on Corin 10/16/24 at 2100, Until Discontinued 2026 (Given - Provider: Fariba Ramos RN) 2017 (Given - Provider: Gena Oneill RN) gabapentin (NEURONTIN) capsule 300 mg 300 mg, Oral, 3 times daily, First dose on Corin 10/16/24 at 1730, Until Discontinued, Pharmacist to adjust dose/frequency for renal function, Post-Op 183 (Given - Provider: Shady Brown RN)2302 (Given - Provider: Fariba Ramos RN) 0908 (Given - Provider: Shady Brown RN)171 (Given - Provider: Shady Brown RN)2017 (Given - Provider: Gena Oneill RN) 0919 (Given - Provider: Karla Lundberg, Nurse Research Home Economist II) levothyroxine (SYNTHROID) tablet 50 mcg 50 mcg, Oral, Daily, First dose on Sun10/17/24 at 0900, Until Discontinued, Avoid iron, calcium, and antacids within 4 hours of administration. 0910 (Given - Provider: Shady Brown RN) 0919 (Given - Provider: Karla Lundberg, Nurse Research Home Economist II) normal saline 0.9 % flush 3-10 mL 3-10 mL, Intravenous, Every 8 hours, First dose on Sun10/16/24 at 1730, Until Discontinued, Post-Op 1745 (Given - Provider: Shady Brown RN)2302 (Given - Provider: Fariba Ramos RN) 1026 (Not Given - Provider: Shady Brown RN - Reason: Other)1815 (Given - Provider: Shady Brown RN) 0300 (Not Given - Provider: Gena Oneill RN - Reason: Patient sleeping)0920 (Given - Provider: Karla Lundberg, Nurse Research Home Economist II) senna-docusate (SENOKOT-S) 8.6-50 MG tablet 1 tablet 1 tablet, Oral, 2 times daily, First dose on Sun10/16/24 at 2100, Until Discontinued 2025 (Given - Provider: Fariba Ramos RN) 09 (Given - Provider: Shady Brown RN)2017 (Given - Provider: Gena Oneill RN) 0919 (Given - Provider: Karla Lundberg, Nurse Research Home Economist II) sertraline (ZOLOFT) tablet 100 mg 100 mg, Oral, 2 times daily, First dose on Sun10/17/24 at 1130, Until Discontinued 1151 (Given - Provider: Shady Brown RN)2017 (Given - Provider: Gena Oneill RN) 0919 (Given - Provider: Karla Lundberg, Nurse Research Home Economist II) Continuous Medication Order 10/16/2024 10/17/2024 10/18/2024 sodium chloride 0.9% infusion at 20 mL/hr, Intravenous, Continuous, Starting on Corin 10/16/24 at 1600, Until 10/18/24 at 1332, At TKO rate if no current IV is infusing 1816 (Hold - Provider: Shady Brown RN - Reason: Other - Comment: Patient is eating and drinking.) PRN Medication Order 10/16/2024 10/17/2024 10/18/2024 acetaminophen (TYLENOL) tablet 650 mg 650 mg, Oral, Every 6 hours PRN, Mild pain (Scale 1 - 3), Starting on Corin 10/16/24 at 1704, Until 10/18/24 at 1332, Maximum dose of acetaminophen is 4000 mg from all sources in 24 hours., Post-Op bisacodyl (DULCOLAX) suppository 10 mg 10 mg, Rectal, Daily as needed, Constipation, Starting on Corin 10/16/24 at 1704, Until 10/18/24 at 1332, Post-Op BUpivacaine-EPINEPHrine PF 0.5% -1:[id number] injection (CANCELED) As needed, Starting on Corin 10/16/24 at 1442, Until Corin 10/16/24 at 1539, Intra-Op 1442 (Given - Provider: Andrew Foster MD - Comment: Mixed 1:1 with 2% lido with epi) clonazePAM (klonoPIN) tablet 1 mg 1 mg, Oral, 2 times daily PRN, anxiety, Starting on Corin 10/16/24 at 1532, Until 10/18/24 at 1332, HAZARDOUS MEDICATION: wear single chemotherapy approved gloves. Do not open or split. If crushing, use approved closed-system crushing device for hazardous medications. cyclobenzaprine (FLEXERIL) tablet 10 mg 10 mg, Oral, 3 times daily PRN, Muscle Spasms, Starting on Corin 10/16/24 at 1704, Until 10/18/24 at 1332, If diazepam (VALIUM) also ordered, alternate doses., Post-Op 1836 (Given - Provider: Shady Brown RN) 1414 (Given - Provider: Shady Brown RN) 0929 (Given - Provider: Karla Lundberg, Nurse Research Home Economist II) fentaNYL (SUBLIMAZE) injection 25 mcg (CANCELED) 25 mcg, Intravenous, Every 5 min PRN, Moderate pain (Scale 4 - 7), 4 doses, Starting on Corin 25 at 1525, Until Corin 10/16/24 at 1725, Maximum cumulative dose 100 mcg. Do not administer if patient is overly sedated, SpO2 less than 90%, or Respiratory Rate less than 12. If more than one IV analgesic is ordered per pain level, use in this order: fentaNYL, morphine, HYDROmorphone. If desired pain control is not reached, move to next ordered medication at next dosing interval., PACU 1551 (Given - Provider: Citlalli Adorno RN)1612 (Given - Provider: Citlalli Adorno RN) HYDROcodone-acetaminophen (NORCO) 5-325 MG tablet 2 tablet 2 tablet, Oral, Every 4 hours PRN, Moderate pain (Scale 4 - 7), 1-2 tablets, Starting on Corin 10/16/24 at 1704, Until 10/18/24 at 1332, Maximum dose of acetaminophen is 4000 mg from all sources in 24 hours., Post-Op 2025 (Given - Provider: Fariba Ramos RN) 0511 (Given - Provider: Fariba Ramos RN)1414 (Given - Provider: Shady Brown RN)2018 (Given - Provider: Gena Oneill RN) 0415 (Given - Provider: Gena Oneill RN)0929 (Given - Provider: Karla Lundberg, Nurse Research Home Economist II) HYDROmorphone (DILAUDID) injection 0.3 mg 0.3 mg, Intravenous, Every 4 hours PRN, Other, Breakthrough pain, Starting on Corin 25 at 1536, Until 10/18/24 at 1332, Administer slowly over at least 2-3 minutes. HYDROmorphone (DILAUDID) injection 0.4 mg (CANCELED) 0.4 mg, Intravenous, Every 15 min PRN, Severe pain (Scale 8 - 10), 5 doses, Starting on Corin 10/16/24 at 1525, Until Corin 10/16/24 at 1725, Maximum cumulative dose 2 mg. Do not administer if patient is overly sedated, SpO2 less than 90%, or Respiratory Rate less than 12. If more than one IV analgesic is ordered per pain level, use in this order: fentaNYL, morphine, HYDROmorphone. If desired pain control is not reached, move to next ordered medication at next dosing interval., PACU 1622 (Given - Provider: Citlalli Adorno RN)1645 (Given - Provider: Citlalli Adorno, RN)1705 (Given - Provider: Citlalli Adorno RN) lidocaine-EPINEPHrine 2 %-[id number] injection (CANCELED) As needed, Starting on Corin 10/16/24 at 1443, Until Corin 10/16/24 at 1539, Intra-Op 1443 (Given - Provider: Andrew Foster MD - Comment: Mixed 1:1 with 0.5% marcaine with epi) qtebryhxj-wgctzesf-tuqqvz icone (MYLANTA MAXIMUM STRENGTH) [id number] mg/30mL suspension 10 mL, Oral, Every 4 hours PRN, Indigestion, Heartburn, Starting on Corin 10/16/24 at 1704, Until 10/18/24 at 1332, Shake Well, Post-Op naLOXone (NARCAN) injection 0.4 mg 0.4 mg, Intravenous, As needed, Opioid reversal, If patient exhibits somnolence and/or excessive sedation or if respirations fall below 8 per minute, 2 doses, Starting on Corin 10/16/24 at 1534, Until 10/18/24 at 1332, Administer every 2 minutes as needed for 2 doses. IM administration: Anterolateral aspect of thigh normal saline 0.9 % flush 3-10 mL 3-10 mL, Intravenous, As needed, Line care, Starting on Corin 10/16/24 at 1704, Until 10/18/24 at 1332, Post-Op ondansetron (ZOFRAN) injection 4 mg 4 mg, Intravenous, Every 8 hours PRN, Nausea, Vomiting, Starting on Corin 10/16/24 at 1704, Until 10/18/24 at 1332, IV push over 2-5 minutes., Post-Op ondansetron (ZOFRAN-ODT) disintegrating tablet 4 mg 4 mg, Oral, Every 8 hours PRN, Nausea, Starting on Corin 10/16/24 at 1532, Until 10/18/24 at 1332 oxyCODONE immediate release (ROXICODONE) tablet 5 mg (COMPLETED) 5 mg, Oral, Once as needed, Mild pain (Scale 1 - 3), 1 dose, Starting on Corin 10/16/24 at 1525, Until Corin 10/16/24 at 1553, Do not administer if patient is overly sedated, SpO2 LESS than 90%, or Respiratory Rate LESS than 12., PACU 1553 (Given - Provider: Citlalli Adorno RN) senna-docusate (SENOKOT-S) 8.6-50 MG tablet 1 tablet 1 tablet, Oral, Nightly PRN, Constipation, May repeat X 1 if no BM or discomfort, Starting on Corin 10/16/24 at 1704, Until 10/18/24 at 1332, Post-Op 0908 (Not Given - Provider: Shady Brown RN - Reason: Other) thrombin solution (CANCELED) As needed, Starting on Corin 10/16/24 at 1243, Until Corin 10/16/24 at 1539, Intra-Op 1243 (Given - Provider: Andrew Foster MD - Comment: Given to sterile field for use with gelfoam) vancomycin (VANCOCIN) injection (CANCELED) As needed, Starting on Corin 10/16/24 at 1243, Until Corin 10/16/24 at 1539, Intra-Op 1243 (Given - Provider: Andrew Foster MD - Comment: Mixed with 1,000 mL of injectable normal saline) documented in this encounter Care Teams Waste Chopper Relationship Specialty Start Date End Date Marta Rivas MD [address] [place] [phone] PCP - General FAMILY PRACTICE 07/16/22 documented as of this encounter
--- OUTSIDE RECORDS SUMMARY | 2024-10-19 12:33 | XMS_ITS | Encounter Summary ---
Author Organization [facility] Address [address] [place] [address] Care Team Providers Care Conveyor Belt Installer Name Role Phone Davide Mendiola MD Primary Care Provider [phone] Crow Paul MD Primary Care Provider Marta Rivas MD Primary Care Provider + [phone] Encounter Details Date Type Department Care Team (Late st Contact Info) Description 02/08/2019 Abstract SFL CONVERSION [address] [place] [address] , Generic Conversion, Social History Tobacco Use Types Packs/Day Years Used Date Smoking Tobacco: Never Assessed Comments Unknown Sex and Gender Information Value Date Recorded Sex Assigned at Female 10/16/2024 6:23 AM BOOK SORTER Legal Sex Female 5:52 PM BOOK SORTER Gender Identity Not on file Sexual Orientation Not on file documented as of this encounter Plan of Treatment Not on file documented as of this encounter Visit Diagnoses Not on filedocumented in this encounter Additional Health Concerns Infection Onset Date Last Indicated Resolved Time COVID-19 Rule Out 01/13/2021 01/13/2021 01/13/2021 3:19 PM CDT COVID-19 Confirmed 01/13/2021 01/13/2021 12:33 AM CDT documented as of this encounter Care Teams Conveyor Belt Installer Relationship Specialty Start Date End Date Davide Mendiola MD [address] [place] [phone] PCP - General FAMILY PRACTICE 07/06/20 01/12/21 Crow Paul MD [address] [place] [phone] PCP - General FAMILY PRACTICE 01/13/21 02/20/22 Marta Rivas MD [address] [place] [phone] PCP - General FAMILY PRACTICE 07/16/22 documented as of this encounter
--- OUTSIDE RECORDS SUMMARY | 2024-10-19 12:33 | XMS_ITS | Clinical Summary ---
Author Organization [facility] Address [address] [place] [address] Care Team Providers Care Couples Therapist Name Role Phone Marta Rivas MD Primary Care Provider [phone] Allergies Active Allergy Reactions Criticality Noted Date Comments Minocycline Hives 02/21/2022 Morphine Nausea and Vomiting 10/10/2024 Sulfa Antibiotics Hives 02/21/2022 Tetracyclines & Related Hives High 08/08/2017 Medications traZODone 50 MG tablet Take 1 tablet (50 mg total) by mouth nightly as needed for Sleep. 2 Active levothyroxine 50 MCG tablet Take 1 tablet (50 mcg total) by mouth daily. 2 Active sertraline 100 MG tablet Take 1 tablet (100 mg total) by mouth 2 (two) times a day. 2 Active clonazePAM 1 MG tablet Take 1 tablet (1 mg total) by mouth 2 (two) times daily as needed for Anxiety. 2 Active buPROPion SR (WELLBUTRIN SR) 100 MG 12 hr tablet Take 1 tablet (100 mg total) by mouth daily. 3 Active ondansetron (ZOFRAN-ODT) 4 MG disintegrating tablet Take 1 tablet (4 mg total) by mouth every 8 (eight) hours as needed for Nausea. 20 tablet 3 Active famotidine (PEPCID) 40 MG tablet Take 1 tablet (40 mg total) by mouth nightly. Active cyclobenzaprine (FLEXERIL) 10 MG tablet Take 1 tablet (10 mg total) by mouth 3 (three) times daily as needed for Muscle Spasms. 30 tablet 5 10/28/19 25 Active gabapentin (NEURONTIN) 300 MG capsule Take 1 capsule (300 mg total) by mouth 3 (three) times daily. 90 capsule 5 Active HYDROcodone-acetam inophen (NORCO) 5-325 MG tabletIndications: Acute Pain < 7 Day Supply Take 1-2 tablets by mouth every 4 (four) hours as needed. Indications : Acute Pain < 7 Day Supply 30 tablet 5 Active loperamide 2 MG capsule TAKE 1 CAPSULE BY MOUTH FOUR TIMES DAILY NEEDED 2 10/10/19 25 Discontin ued(Error ) meloxicam (MOBIC) 15 MG tablet Take 15 mg by mouth nightly. 10/10/19 25 Discontin ued(Error ) omeprazole (PRILOSEC) 40 MG capsule Take 1 capsule (40 mg total) by mouth daily. 3 10/10/19 25 Discontin ued(Error ) traMADol (ULTRAM) 50 MG tabletIndications: Acute Pain < 7 Day Supply Take 1 tablet (50 mg total) by mouth every 6 (six) hours as needed for Pain. Indications : Acute Pain < 7 Day Supply 15 tablet 3 10/10/19 25 Discontin ued(Error ) Active Problems Problem Noted Date Diagnosed Date Cervical myopathy 10/17/2024 Cervical myelopathy ([facility]) 10/16/2024 Encounters Date Type Department Care Team Description 10/16/2024 11:39 AM [facility] Anesthesia Event [facility] [address] [place] [address] Sylvain Moody II, MD Coonrod, Sheila A, RN 10/16/2024 10:55 AM CAN DRAGGER - 10/16/2024 2:10 PM [facility] Surgery [facility] [address] [place] [address] Andrew Bains MD DISCECTOMY AND FUSION SPINAL ANTERIOR CERVICAL C3-6 10/16/2024 6:22 AM CAN DRAGGER - 10/18/2024 11:32 AM [facility] Hospital Encounter [facility] [address] [place] [address] Andrew Bains MD Discharge Disposition: Home or Self Care (Routine Discharge) 10/16/2024 Travel 10/10/2024 Travel 10/07/2024 2:00 PM CAN DRAGGER - 10/07/2024 11:59 PM CAN DRAGGER Hospital Encounter [facility] [address] [place] [address] Andrew Bains MD Discharge Disposition: Home or Self Care (Routine Discharge) 10/07/2024 2:00 PM CAN DRAGGER - 10/07/2024 11:59 PM CAN DRAGGER Hospital Encounter [facility] [address] [place] [address] Andrew Bains MD Discharge Disposition: Home or Self Care (Routine Discharge) 10/07/2024 1:59 PM CAN DRAGGER Hospital Encounter [facility] [address] [place] [address] Andrew Bains MD Discharge Disposition: Home or Self Care (Routine Discharge) 10/07/2024 Orders Only [facility] [address] [place] [address] Marta Rivas MD 10/07/2024 Travel from Last 3 Months Family History Medical History Relation Comments No Known Problems Father Atrial fibrillation Mother Depression Mother Heart Disease Mother Hypertension Mother Relation Status Comments Father Alive Mother Alive Social History Tobacco Use Types Packs/Day Years Used Date Smoking Tobacco: Former Cigarettes Smokeless Tobacco: Current Tobacco Cessation:Ready to Q uit: Not Asked; Counseling Given: Not Answered Comments:Vape, patient instructed not to vape 24 hours prior to procedure Alcohol Use Standard Drinks/Week Comments Not Currently 0 (1 standard drink = 0.6 oz pur e alcohol) [facility] Utilities Answer Date Recorded In the past 12 months has e [employer], gas, oil, or water [employer] threatened to shut off services in your [...] No 10/16/2024 Housing Stability Vital Sign Answer Chance e Recorded In the last 12 months, was t here a time when you were not able to pay the mortgage or rent on time? No 10/16/2024 In the past 12 months, how m any times have you moved where you were living? 0 10/16/2024 At any time in the past 12 m [facility], were you homeless or living in a half-way (including now)? No 10/16/2024 Comments No Sex and Gender Information Value Date Recorded Sex Assigned at Female 10/16/2024 6:23 AM CAN DRAGGER Legal Sex Female 5:52 PM CAN DRAGGER Gender Identity Not on file Sexual Orientation Not on file Last Filed Vital Signs Vital Sign Reading Time Taken Comments Blood Pressure 141/72 10/18/2024 8:19 AM CAN DRAGGER Pulse 73 10/18/2024 8:19 AM CAN DRAGGER Temperature 36.8 C (98.2 F) 10/18/2024 8:19 AM CAN DRAGGER Respiratory Rate 18 10/17/2024 4:36 AM CAN DRAGGER Oxygen Saturation 97% 10/18/2024 8:19 AM CAN DRAGGER Inhaled Oxygen Concentration - - Weight 64.9 kg (143 lb) 10/16/2024 7:15 AM CAN DRAGGER Height 162.6 cm (5' 4 ) 10/16/2024 7:15 AM CAN DRAGGER Body Mass Index 24.55 10/16/2024 7:15 AM CAN DRAGGER Plan of Treatment Health Maintenance Due Date Last Done Comments Colorectal Cancer Screening Colonoscopy (10 Years) 1970 Annual Physical 1972 Hepatitis C 1987 DTaP, Tdap and Td Vaccines ( 1 - Tdap) 1988 Hepatitis B Vaccines (1 of 3 - 19+ 3-dose series) 1988 Zoster Vaccines (1 of 2) 2019 COVID-19 Vaccine (2023-2 5 season) 2024 Influenza Adult (#1) 2024 Mammogram Screening 07/17/2024 07/17/2022, 06/15/2022 Meningococcal B Vaccine Aged Out No l onger eligible based on patient's age to complete this topic Meningococcal Vaccine Aged Out No vesna audrey eligible based on patient's age to complete this topic Pneumococcal Vaccine: Pediatrics (0 to 5 Years) and At-Risk Patients (6 to 64 Years) Aged Out No longer eligible b ased on patient's age to complete this topic RSV Immunizations Under 20 Months Aged Out No longer eligible b ased on patient's age to complete this topic Medical Devices Implanted Type Area Supervisor Rides Device Identifier Shelf Expiration Date Model / Serial / Lot Agent Hemostatic Surgiflo 8 Ml Kit - [id number] Implanted:Qty: 1 on 10/16/2024 by Andrew Bains MD at [facility] Sealant N/A: Spine Cervical [employer] [id number] 09/02/2025 [id number] / / [id number] 51mm 3-Level Plate Implanted:Qty: 1 on 10/16/2024 by Andrew Bains MD at [facility] N/A: Spine Cervical NEW AGE MEDICAL NA [id number] 51 / / NA 14mm 4.3 Screw Implanted:Qty: 1 on 10/16/2024 by Andrew Bains MD at [facility] N/A: Spine Cervical NA [id number] 14 / / NA Easypack Putty Implanted:Qty: 1 on 10/16/2024 by Andrew Bains MD at [facility] N/A: Spine Cervical NA 01/01/2029 [id number] / / [id number] Waveform C Implanted:Qty: 1 on 10/16/2024 by Andrew Bains MD at [facility] N/A: Spine Cervical SEASPINE NA 07/21/2029 [id number] 67 / / [id number] Waveform C Implanted:Qty: 1 on 10/16/2024 by Andrew Bains MD at [facility] N/A: Spine Cervical SEASPINE NA 02/16/2028 AC4-2430 77 / / [id number] Waveform C Implanted:Qty: 1 on 10/16/2024 by Andrew Bains MD at [facility] N/A: Spine Cervical SEASPINE NA 06/27/2029 [id number] 67 / / [id number] 14mm 4.0 Screws Implanted:Qty: 7 on 10/16/2024 by Andrew Bains MD at [facility] N/A: Spine Cervical NEW AGE MEDICAL NA [id number] 14 / / NA 45mm 3-Level Plate Implanted:Qty: 1 on 10/16/2024 by Andrew Bains MD at [facility] N/A: Spine Cervical NEW AGE MEDICAL NA [id number] 45 / / NA Explanted Type Area Supervisor Rides Device Identifier Shelf Expiration Date Model / Serial / Lot Pin Distraction Medline 12mm - [id number] Explanted:Qty: 2 on 10/16/2024 by Andrew Bains MD at [facility] Pin N/A: Spine Cervical Voltea NA 05/03/2029 [id number] / / [id number] 45mm 3-Level Plate Explanted:Qty: 1 on 10/16/2024 by Andrew Bains MD at [facility] N/A: Spine Cervical NEW AGE MEDICAL NA [id number] / / NA Procedures Procedure Name Priority Date/Time Associated Diagnosis Comments BASIC METABOLIC PANEL Routine 10/16/2024 6:12 PM CAN DRAGGER HEMOGLOBIN AND HEMATOCRIT Routine 10/16/2024 6:12 PM CAN DRAGGER SURG XR FLUOROSCOPY Routine 10/16/2024 2 :28 PM CAN DRAGGER ECG 12-LEAD Routine 10/07/2024 2:42 PM CAN DRAGGER Preop examination XR CHEST PA+LAT Routine 10/07/2024 2:37 PM CAN DRAGGER Pre-op testing MRSA SCREENING Routine 10/07/2024 2:28 PM CAN DRAGGER Vitamin B12 deficiency Pre-op testing PREALBUMIN Routine 10/07/2024 2:27 PM CAN DRAGGER Vitamin B12 deficiency Pre-op testing COMPREHENSIVE METABOLIC PANEL Routine 10/07/2024 2:27 PM CAN DRAGGER Vitamin B12 deficiency Pre-op testing HEMOGLOBIN, GLYCOSYLATED Routine 10/07/2024 2:27 PM CAN DRAGGER Vitamin B12 deficiency Pre-op testing PARTIAL THROMBOPLASTIN TIME,PTT Routine 10/07/2024 2:27 PM CAN DRAGGER Vitamin B12 deficiency Pre-op testing PROTHROMBIN TIME, VENOUS Routine 10/07/2024 2:27 PM CAN DRAGGER Vitamin B12 deficiency Pre-op testing VITAMIN D, 25 OH Routine 10/07/2024 2:27 PM CAN DRAGGER Vitamin B12 deficiency Pre-op testing CBC W/DIFF AUTOMATED Routine 10/07/2024 2:27 PM CAN DRAGGER Vitamin B12 deficiency Pre-op testing FOLIC ACID SERUM Routine 10/07/2024 2:27 PM CAN DRAGGER Vitamin B12 deficiency Pre-op testing VITAMIN B-12 Routine 10/07/2024 2:27 PM CAN DRAGGER Vitamin B12 deficiency Pre-op testing HC URINALYSIS AUTO W/MICRO Routine 10/07/2024 2:22 PM CAN DRAGGER Vitamin B12 deficiency Pre-op testing MG DIAG W GREGORY BILAT DIGI Routine 07/17/2022 12:32 PM CAN DRAGGER Abnormal breast finding from Last 3 Months or Most Recently Relevant to Health Maintenance Results * HEMOGLOBIN AND HEMATOCRIT (10/16/2024 6:12 PM CAN DRAGGER) Pathologist [facility] HGB 12.1 12.0 - 16.0 G/DL 10/16/2024 6:21 PM CAN DRAGGER [facility] HCT 36.8 36.0 - 47.0 % 10/16/2024 6:21 PM CAN DRAGGER [facility] 10/16/2024 6:12 PM CAN DRAGGER Duncan Beard MD LABORATORY Final Resu lt [facility] [address] [place] [address], [phone] * (ABNORMAL) BASIC METABOLIC PANEL (10/16/2024 6:12 PM CAN DRAGGER) Pathologist [facility] SODIUM S/P/B 139 136 - 145 MMOL/L 10/16/2024 6:51 PM CAN DRAGGER [facility] POTASSIUM S/P/B 3.7 3.5 - 5.1 MMOL/L 10/16/2024 6:51 PM CAN DRAGGER [facility] CHLORIDE S/P/B 108 97 - 115 MMOL/L 10/16/2024 6:51 PM CAN DRAGGER [facility] CO2 27.0 21.0 - 32.0 MMOL/L 10/16/2024 6:51 PM CAN DRAGGER [facility] GLUCOSE 126(H) 74 - 106 MG/DL 10/16/2024 6:51 PM CAN DRAGGER [facility] BUN 10 7 - 18 MG/DL 10/16/2024 6:51 PM [facility] CREATININE S/P/B 0.90 0.55 - 1.02 MG/DL 10/16/2024 6:51 PM [facility] CALCIUM S/P/B 8.9 8.5 - 10.1 MG/DL 10/16/2024 6:51 PM [facility] ANION GAP 4.0 2.0 - 10.0 MMOL/L 10/16/2024 6:51 PM [facility] OSMOLALITY (CALC) 289 MOSM/KG 025 6:51 PM [facility] Comment:REFERENCE RANGE NOT ESTABLISHED GFR ESTIMATE 75(L) >90 ML/MIN/1. 73 M2 10/16/2024 6:51 PM [facility] GFR NOTES GFR REFERENCE S: [...] FAILURE: <15 ml/min/1.73 m2 10/16/2024 6:12 PM CAN DRAGGER us Duncan Beard MD LABORATORY Final Resu lt [facility] [address] [place] [address], [id number] * SURG XR FLUOROSCOPY (10/16/2024 2:28 PM CAN DRAGGER) Anatomical Region Laterality Modality Undefined Radio Fluoroscop y 10/16/2024 12:4 9 PM CAN DRAGGER Narrative 10/16/2024 12:49 PM CAN DRAGGER This report does not contain a radiologist's interpretation. Please review associated procedure and/or operative report. Procedure Note Angela Garcia MD - 10/16/2024 This report does not contain a radiologist's interpretation. Please review associated procedure and/or operative report. us Andrew Bains MD IMAGES ONLY Final Result * ECG 12 lead (10/07/2024 2:42 PM CAN DRAGGER) 10/07/2024 2:42 PM CAN DRAGGER Narrative [facility] - 10/07/2024 8:25 PM CAN DRAGGER [address] [place] [address] Test Date: 2024-10-07 Pat Name: FARIBA SABA Department: 3 Room: Gender: Female Frame Builder: : 1970 Requested By: ANDREW BAINS Order Number: [id number] Reading : Sarabjit Proctor Measurements Intervals Nahma Rate: 53 P: 11 NC: 159 QRS: 76 QRSD: 89 T: 31 QT: 445 QTc: 418 Interpretive Statements SINUS BRADYCARDIA DRAGGER Procedure Note Sarabjit Proctor MD - 10/07/[address] [place] [address] Test Date: 2024-10-07 Pat Name: FARIBA SABA Department: 3 Room: Gender: Female Frame Builder: : 1970 Requested By: ANDREW BAINS Order Number: [id number] Reading : Sarabjit Proctor Measurements Intervals Nahma Rate: 53 P: 11 NC: 159 QRS: 76 QRSD: 89 T: 31 QT: 445 QTc: 418 Interpretive Statements SINUS BRADYCARDIA DRAGGER us Andrew Bains MD ECG ORDERABLES Final Result [facility] * XR CHEST PA+LAT (10/07/2024 2:37 PM CAN DRAGGER) Anatomical Region Laterality Modality Chest Radiographic Conchita ging 10/07/2024 2:50 PM CAN DRAGGER Impressions 10/07/2024 2:52 PM CAN DRAGGER IMPRESSION: No acute disease. Ordered By: MARTA RIVAS Interpreted By: Dhruv Ray MD, 10/07/2024 2:50 PM Narrative 10/07/2024 2:52 PM CAN DRAGGER [address] [place] [address] Examination: Two-view chest Exam time: 1413 hours. Clinical history: Preop. Comparison: 02/21/2022. Technique: PA and lateral views Findings: Allowing for differences in projection and rotation, the cardiomediastinal silhouette is stable. The heart remains within normal limits for size. Pulmonary vascularity is within normal limits. The lungs and pleural spaces appear free of any active process. Mild S-type thoracolumbar scoliosis and interbody fusion at C6-7 again evident. Procedure Note Dhruv Ray MD - 10/07/[address] [place] [address] Examination: Two-view chest Exam time: 1413 hours. Clinical history: Preop. Comparison: 02/21/2022. Technique: PA and lateral views Findings: Allowing for differences in projection and rotation, thecardiomediastinal silhouette is stable. The heart remains within normallimits for size. Pulmonary vascularity is within normal limits. The lungsand pleural spaces appear free of any active process. Mild S-typethoracolumbar scoliosis and interbody fusion at C6-7 again evident. IMPRESSION: No acute disease. Ordered By: MARTA RIVAS Interpreted By: Dhruv Ray MD, 10/07/2024 2:50 PM us Marta Rivas MD GENERAL IMAGING Final Resu lt * MRSA SCREENING (10/07/2024 2:28 PM CAN DRAGGER) SOURCE RESPIRATORY, NOSE 10/07/2024 2:23 PM CAN DRAGGER [facility] MRSA BY PCR NASAL METHICILLIN RESISTANT STAPH AUREUS NOT DETECTED METHICILLIN RESISTANT STAPH AUREUS NOT DETECTED 10/08/2024 10:23 AM CAN DRAGGER [facility] NASAL STRUCTURE / Unknown 10/07/2024 2:28 PM CAN DRAGGER Marta Rivas MD MICROBIOLOGY - GENERAL ORD ERABLES Final Result [facility] [address] [place] [address], [place] [phone] [id number] [facility] [address] [place] [id number], [place] [phone] * HEMOGLOBIN, GLYCOSYLATED (10/07/2024 2:27 PM CAN DRAGGER) HGB A1C 4.9 <5.7 % 10/07/2024 6:58 PM CAN DRAGGER [facility] ESTIMATED AVG GLUCOSE 94 74 - 114 MG/DL 10/07/2024 6:58 PM CAN DRAGGER [facility] 10/07/2024 2:27 PM CAN DRAGGER Marta Rivas MD LABORATORY Final Resu lt [facility] [address] [place] [address], [place] [phone] [id number] * VITAMIN B-12 (10/07/2024 2:27 PM CAN DRAGGER) VITAMIN B12 S/P/B 278 193 - 986 PG/ML 10/07/2024 9:11 PM CAN DRAGGER [facility] 10/07/2024 2:27 PM CAN DRAGGER Marta Rivas MD LABORATORY Final Resu lt Performing Organization Address City/[facility]/ZIP Co de Phone Number [facility] [address] [place] [address], [phone] * (ABNORMAL) PARTIAL THROMBOPLASTIN TIME,PTT (10/07/2024 2:27 PM CAN DRAGGER) PTT 36.7(H) 25.1 - 36.5 SEC 10/07/2024 2:48 PM CAN DRAGGER [facility] 10/07/2024 2:27 PM CAN DRAGGER Marta Rivas MD LABORATORY Final Resu lt Performing Organization Address [facility] Co de Phone Number [facility] [address] [place] [phone], * PROTIME/INR, VENOUS (10/07/2024 2:27 PM CAN DRAGGER) PROTIME 11.8 9.4 - 12.5 SEC 10/07/2024 2:48 PM CAN DRAGGER [facility] INR 1.0 0.8 - 1.0 10/07/2024 2:48 PM CAN DRAGGER [facility] 10/07/2024 2:27 PM CAN DRAGGER Marta Rivas MD LABORATORY Final Resu lt Performing Organization Address [facility]/ZIP Co de Phone Number [facility] [address] [place] [phone], * (ABNORMAL) PREALBUMIN (10/07/2024 2:27 PM CAN DRAGGER) PREALBUMIN 19.7(L) 20.0 - 40.0 MG/DL 10/07/2024 8:07 PM CAN DRAGGER [facility] 10/07/2024 2:27 PM CAN DRAGGER us Marta Rivas MD LABORATORY Final Resu lt [facility] [address] [place] [address], [id number] * (ABNORMAL) COMPREHENSIVE METABOLIC PANEL (10/07/2024 2:27 PM CAN DRAGGER) SODIUM S/P/B 140 136 - 145 MMOL/L 10/07/2024 2:57 PM CAN DRAGGER [facility] POTASSIUM S/P/B 4.0 3.5 - 5.1 MMOL/L 10/07/2024 2:57 PM CAN DRAGGER [facility] CHLORIDE S/P/B 102 98 - 107 MMOL/L 10/07/2024 2:57 PM CAN DRAGGER [facility] CO2 30.0 21.0 - 32.0 MMOL/L 10/07/2024 2:57 PM [facility] GLUCOSE 74 70 - 99 MG/DL 10/07/2024 2:57 PM [facility] Comment: FASTING GLUCOSE 100 TO 125 MG/DL IS CONSISTENT WITH IMPAIRED FASTING GLUCOSE. FASTING GLUCOSE >125 MG/DL IS CONSISTENT WITH DIABETES. RANDOM GLUCOSE >200 MG/DL WITH HYPERGLYCEMIC SYMPTOMS IS CONSISTENT WITH DIABETES. PER ADA GUIDELINES BUN 13 6 - 24 MG/DL 10/07/2024 2:57 PM CAN DRAGGER [facility] CREATININE S/P/B 0.83 0.55 - 1.02 MG/DL 10/07/2024 2:57 PM [facility] CALCIUM S/P/B 8.8 8.4 - 10.5 MG/DL 10/07/2024 2:57 PM [facility] BILIRUBIN TOTAL S/P/B 0.3 0.2 - 1.0 MG/DL 10/07/2024 2:57 PM [facility] Comment: THIS ASSAY IS NOT RECOMMENDED FOR PATIENTS UNDERGOING TREATMENT WITH ELTROMBOPAG DUE TO THE POTENTIAL FOR FALSELY ELEVATED RESULTS. ALKALINE PHOSPHATASE S/P/B 56 41 - 108 U/L 10/07/2024 2:57 PM CAN DRAGGER [facility] AST 9(L) 15 - 37 U/L 10/07/2024 2:57 PM CAN DRAGGER [facility] ALT 13(L) 14 - 59 U/L 10/07/2024 2:57 PM CAN DRAGGER [facility] TOTAL PROTEIN S/P/B 7.2 6.4 - 8.2 G/DL 10/07/2024 2:57 PM CAN DRAGGER [facility] ALBUMIN S/P/B 3.7 3.4 - 5.0 G/DL 10/07/2024 2:57 PM CAN DRAGGER [facility] ANION GAP 8.0 5.0 - 15.0 MMOL/L 10/07/2024 2:57 PM CAN DRAGGER [facility] OSMOLALITY (CALC) 289 MOSM/KG 025 2:57 PM CAN DRAGGER [facility] Comment:REFERENCE RANGE NOT ESTABLISHED GFR ESTIMATE 83(L) >89 ML/MIN/1. 73 M2 10/07/2024 2:57 PM CAN DRAGGER [facility] GFR NOTES GFR REFERENCE S: 10/07/2024 2:57 PM CAN DRAGGER [facility] Comment: THE ESTIMATED GFR IS CALCULATED [...] ml/min/1.73 m2 G5,KIDNEY FAILURE: <15 ml/min/1.73 m2 10/07/2024 2:27 PM CAN DRAGGER us Marta Rivas MD LABORATORY Final Resu lt [facility] [address] [place] [address], * FOLIC ACID SERUM (10/07/2024 2:27 PM CAN DRAGGER) Pathologist [facility] FOLATE 12.6 3.1 - 17.5 NG/ML 10/07/2024 9:11 PM CAN DRAGGER [facility] 10/07/2024 2:27 PM CAN DRAGGER us Marta Rivas MD LABORATORY Final Resu lt [facility] [address] [place] [address], [phone] * (ABNORMAL) CBC W/DIFF AUTOMATED (10/07/2024 2:27 PM CAN DRAGGER) [facility] WBC 6.81 4.00 - 10.80 x10'3/uL 10/07/2024 2:39 PM [facility] RBC 3.59(L) 4.10 - 5.40 x10'6/uL 10/07/2024 2:39 PM [facility] HGB 11.7(L) 12.0 - 16.0 G/DL 10/07/2024 2:39 PM [facility] HCT 34.9(L) 36.0 - 47.0 % 10/07/2024 2:39 PM [facility] MCV 97.2 78.0 - 100.0 FL 10/07/2024 2:39 PM [facility] MCH 32.6(H) 27.0 - 31.0 PG 10/07/2024 2:39 PM [facility] MCHC 33.5 33.0 - 36.0 G/DL 10/07/2024 2:39 PM [facility] RDW 12.4 11.5 - 14.5 % 10/07/2024 2:39 PM [facility] PLT 258 150 - 350 x10'3/uL 10/07/2024 2:39 PM [facility] MPV 8.6 7.4 - 10.4 FL 10/07/2024 2:39 PM [facility] CBC COMMENT NORMAL REFERENCE RANGE NOT ESTABLISHED FOR THE PROPORTIONAL LEUKOCYTE DIFFERENTIAL. 10/07/2024 2:39 PM [facility] NEUTROPHILS % 55.7 % 10/07/2024 2:39 PM [facility] LYMPHOCYTES % 36.0 % 10/07/2024 2:39 PM [facility] MONOCYTES % 5.6 % 10/07/2024 2:39 PM [facility] EOSINOPHILS % 1.6 % 10/07/2024 2:39 PM CAN DRAGGER [facility] BASOPHILS % 1.0 % 10/07/2024 2:39 PM [facility] IMMATURE GRANS % 0.1 % 10/07/19 2:39 PM [facility] NRBC % 0.0 % 10/07/2024 2:39 PM [facility] ABS. NEUTROPHILS 3.79 1.60 - 8.30 x10'3/uL 10/07/2024 2:39 PM CAN DRAGGER [facility] ABS. LYMPHOCYTES 2.45 0.80 - 4.70 x10'3/uL 10/07/2024 2:39 PM [facility] ABS. MONOCYTES 0.38 0.00 - 1.50 x10'3/uL 10/07/2024 2:39 PM [facility] ABS. EOSINOPHILS 0.11 0.00 - 0.40 x10'3/uL 10/07/2024 2:39 PM [facility] ABS. BASOPHILS 0.07 0.00 - 0.20 x10'3/uL 10/07/2024 2:39 PM [facility] ABS. IMMATURE GRANULOCYTES 0.01 0.00 - 0.03 x10'3/uL 10/07/2024 2:39 PM [facility] ABS. NUCLEATED RBC'S 0.00 0.00 - 0.01 x10'3/uL 10/07/2024 2:39 PM [facility] 10/07/2024 2:27 PM CAN DRAGGER us Marta Rivas MD LABORATORY Final Resu lt [facility] [address] [place] [address], [place] [phone] * VITAMIN D, 25 OH (10/07/2024 2:27 PM CAN DRAGGER) VITAMIN D 25 HYDROXY TOTAL S/P/B 24.0 20.0 - 50.0 NG/ML 10/07/2024 7:48 PM CAN DRAGGER [facility] Comment: <10 ng/mL (Severe deficiency) 10 TO 19 ng/mL (Mild to Moderate deficiency) 20 TO 50 ng/mL (Optimum levels) 51 TO 80 ng/mL (Increased risk of hypercalciuria) >80 ng/mL (Toxicity possible) 10/07/2024 2:27 PM CAN DRAGGER us Marta Rivas MD LABORATORY Final Resu lt Performing Organization Address [facility]/ZIP Co de Phone Number [facility] [address] [place] [address], [place] [phone] * (ABNORMAL) URINALYSIS (10/07/2024 2:22 PM CAN DRAGGER) COLOR (U) YELLOW 10/07/2024 2:53 PM CAN DRAGGER [facility] LAB TRANSPARENCY CLEAR 10/07/2024 2:53 PM CAN DRAGGER [facility] SPECIFIC GRAVITY (U) 1.025 1.000 - 1.025 10/07/2024 2:53 PM CAN DRAGGER [facility] U PH 5.5 5.0 - 8.0 10/07/2024 2:53 PM CAN DRAGGER [facility] LEUKOCYTES (U) NEGATIVE NEGATIVE 10/07/2024 2:53 PM CAN DRAGGER [facility] NITRITES NEGATIVE NEGATIVE 10/07/2024 2:53 PM CAN DRAGGER [facility] PROTEIN RANDOM (U) NEGATIVE NEGATIVE 10/07/2024 2:53 PM CAN DRAGGER [facility] GLUCOSE (U) NEGATIVE NEGATIVE 10/07/2024 2:53 PM CAN DRAGGER [facility] KETONES MG/DL (U) NEGATIVE NEGATIVE 10/07/2024 2:53 PM CAN DRAGGER [facility] UROBILINOGEN 0.2 <1.0 EU/DL 10/07/2024 2:53 PM CAN DRAGGER [facility] BILIRUBIN (U) NEGATIVE NEGATIVE 10/07/2024 2:53 PM CAN DRAGGER [facility] BLOOD (U) NEGATIVE NEGATIVE 10/07/2024 2:53 PM CAN DRAGGER [facility] WBC/HPF NONE SEEN(A) 0 - 5 /HPF 10/07/2024 2:53 PM CAN DRAGGER [facility] EPI/LPF 50-100 /LPF 10/07/2024 2:53 PM CAN DRAGGER [facility] BACTERIA (U) 1+ /HPF 10/07/2024 2:53 PM CAN DRAGGER [facility] URINE SPECIMEN OBTAINED BY CLEAN CATCH PROCEDURE / Unknown 10/07/2024 2:22 PM CAN DRAGGER us Marta Rivas MD URINE ORDERABLES Final Res ult [facility] [address] [place] [address], * MG DIAG W GREGORY BILAT DIGI (07/17/2022 12:32 PM CAN DRAGGER) Anatomical Region Laterality Modality Breast Bilateral Mammography, Rad iographic Imaging 08/07/2022 12:5 9 PM CAN DRAGGER Narrative 08/07/2022 1:04 PM CAN DRAGGER Examination: Bilateral diagnostic mammogram, bilateral breast ultrasound [id number] Clinical history: Further evaluation for microcalcifications likely densities within axillary lymph nodes bilaterally which were not present on previous mammogram of 2013. Note is made of the fact that the patient has had extensive bilateral upper extremity and chest tattoos since the previous mammogram of 2013. Comparison: Mammograms 06/15/2022 Technique: Digital diagnostic mammography of both breasts and ultrasound of both breasts was performed. Breast tomosynthesis acquisitions were obtained bilaterally. This study was read with the assistance of a computer-aided detection system. Tissue density: There are scattered areas of fibroglandular density. Findings: Diagnostic mammogram: The images confirm the presence of multifocal punctate densities within slightly prominent axillary lymph nodes bilaterally. No definite malignant appearing lesion within either breast. The possibility that this represents migration of tatoo ink to the axillary nodes should be considered. No suspicious masses, malignant appearing calcifications, skin thickening or other abnormalities are present. No significant change from the prior exam. Examination: Bilateral breast ultrasound Findings: The images demonstrate borderline prominent bilateral axillary lymph nodes with minimal cortical thickening. IMPRESSION: 1. Interval development of indeterminate stippled high density within slightly prominent axillary lymph nodes bilaterally. No definite associated mammographic lesion on either side. The possibility that the axillary lymph node abnormality represents migration of tattoo ink to the axillary nodes is suggested. Recommendation: 1: Breast MRI bilateral for higher sensitivity exclusion of any evidence of breast malignancy. Overall assessment: ACR BI-RADS Category 0 -incomplete, needs additional imaging. Ordered By: CROW JOHNSON Interpreted By: Curtis Oliveira MD, 08/07/2022 12:59 PM Crow Johnson MD MAMMO Final Resul t from Last 3 Months or Most Recently Relevant to Health Maintenance Insurance [facility] Advance Directives * Full Code (Latest Code Status on File) Date Activated Date Inactivated Comments 10/16/2024 5:42 PM 10/18/2024 1:32 PM * Full Code Date Activated Date Inactivated Comments 10/16/2024 5:04 PM 10/16/2024 5:41 PM Care Teams Couples Therapist Relationship Specialty Start Date End Date Marta Rivas MD [address] [place] [phone] PCP - General FAMILY PRACTICE 07/16/22
--- OUTSIDE RECORDS SUMMARY | 2024-10-19 12:33 | XMS_ITS | Clinical Summary ---
Author Organization [facility] Address [address] [address] Care Team Providers Care Coordinating Producer Name Role Phone Davide Mendiola MD Primary Care Provider Source Comments [facility] and Associated Physician Practices is amultiple site organization consisting of ambulatory clinics and hospital sitesin [place], [place], [place] and [place]. This disclosure is being madepursuant to the Care Everywhere program and may not contain all information available regarding this patient. Last updated 18.[facility] Allergies Active Allergy Reactions Criticality Noted Date Comments Sulfa Drugs 08/08/2017 Tetracyclines 08/08/2017 Medications * Be aware that medications may not be up to date on this document. Alwaysverify current medications with the patient. Medication Sig Dispensed Refills Start Date End Date Status Levothyroxine Sodium (SYNTHROID PO) Take 0.05 mg by mouth Act sumaya ClonazePAM (KLONOPIN PO) Take by mouth as needed Active PARoxetine (PAXIL) 40 MG tabletIndications:P anic Disorder Take 40 mg by mouth once daily Reasons: Panic Disorder Active Multiple Vitamins-Minerals (HAIR/SKIN/NAILS) TABS Active acetaminophen (TYLENOL) 500 MG tablet Take 500 mg by mouth every 4 hours as needed for Fever or Pain Maximum allowable Acetaminophen amount = 4 Grams (4000 mg) / 24 hours. Active Active Problems Problem Noted Date Diagnosed Date Hepatic hemangioma 02/05/2019 Family History Medical History Relation Name Comments Diabetes - Type 2 Brother Juan Luis Other - Hepatic/Liver Cousin Crystal Power Cancer - Other Maternal Aunt 1 chris Hypertension Maternal Aunt 1 chris Diabetes - Type 2 Maternal Aunt 2 Darlene Renal Disease Maternal Aunt 2 Darlene CAD (Coronary Artery Disease) Maternal Uncle 1 Sylvest er CAD (Coronary Artery Disease) Maternal Uncle 3 Jordan Diabetes - Type 2 Maternal Uncle 3 Jordan CAD (Coronary Artery Disease) Mother Fariba Hypertension Mother Fariba Diabetes - Type 2 Paternal Aunt Arin Hypertension Paternal Aunt Arin Relation Name Status Comments Brother Juan Luis Alive Cousin Crystal Power Alive Father Alive Maternal Aunt 1 chris Alive Maternal Aunt 2 Darlene Alive Maternal Uncle 1 Kimper Alive Maternal Uncle 2 Juan Luis (Age 64) Maternal Uncle 3 Jordan Alive Mother Fariba Alive Paternal Aunt Arin Alive Social History Tobacco Use Types Packs/Day Years Used Date Smoking Tobacco: Every Day Cigarettes Started: 02/05/1982 Smokeless Tobacco: Never Tobacco Cessation:Ready to Q uit: No; Counseling Given: Yes Alcohol Use Standard Drinks/Week Comments Yes 10 (1 standard drink = 0.6 oz pu re alcohol) Sex and Gender Information Value Date Recorded Sex Assigned at Not on file Gender Identity Not on file Sexual Orientation Not on file Last Filed Vital Signs Vital Sign Reading Time Taken Comments Blood Pressure 114/78 09/12/2019 12:41 PM BALLAST CLEANING OPERATOR Pulse 100 09/12/2019 12:41 PM BALLAST CLEANING OPERATOR Temperature 37 C (98.6 F) 09/12/2019 12:41 PM BALLAST CLEANING OPERATOR Respiratory Rate 18 09/12/2019 12:41 PM BALLAST CLEANING OPERATOR Oxygen Saturation 98% 09/12/2019 12:41 PM BALLAST CLEANING OPERATOR Inhaled Oxygen Concentration - - Weight 75.8 kg (167 lb 3.2 oz) 09/12/2019 12:41 PM BALLAST CLEANING OPERATOR Height 162.6 cm (5' 4 ) 09/12/2019 12:41 PM BALLAST CLEANING OPERATOR Body Mass Index 28.7 09/12/2019 12:41 PM BALLAST CLEANING OPERATOR Plan of Treatment Health Maintenance Due Date Last Done Comments COLOGUARD (AGES 45-75) - COL ON CA SCREENING 1969 COLON MONITORING 1969 COLONOSCOPY - COLON CA SCREENING 1969 CT COLONOGRAPHY - COLON CA SCREENING 1969 Colorectal Cancer Screening 1969 FIT - COLON CA SCREENING 1969 FLEX SIG - COLON CA SCREENING 1969 LIPID TESTING 1969 MAMMOGRAM 1969 PAP SMEAR 1969 HIV SCREENING 1984 HEPATITIS C SCREENING 05/11/1987 DTAP/TDAP/TD VACCINES (1 - Tdap) 1988 HEPATITIS B VACCINE (1 of 3 - 19+ 3-dose series) 1988 PNEUMOCOCCAL VACCINE 50+ (1 of 2 - PCV) 1988 PNEUMOCOCCAL VACCINE (1 of 2 - PCV) 1988 SCREENING FOR DIABETES 02/05/2019 ZOSTER VACCINE (1 of 2) 2019 COVID-19 VACCINE (1 - 2023-2 5 season) 2024 INFLUENZA VACCINE (#1) 2024 DEPRESSION SCREENING 09/03/2024 HIB VACCINE Aged Out No longer eligi ble based on patient's age to complete this topic HPV VACCINE Aged Out No longer eligi ble based on patient's age to complete this topic MENINGOCOCCAL (Group B) VACCINE Aged Out No longer eligible based on patient's age to complete this topic MENINGOCOCCAL VACCINE Aged Out No vesna audrey eligible based on patient's age to complete this topic Goals Goal Patient Goal Type Associated Problems Recent Progress Patient-Stated? Author Medication Management General On track( 019 11:24 AM CDT) No Susy Patrick, BRADLEY Note: Expected end date: ongoing Interventions: Take all medications as prescribed Let your doctor know right away about any changes in your medications Make sure to request a refill of your medication at least one week prior to your last dose Safety General On track( 019 11:24 AM CDT) No Susy Patrick, BRADLEY Note: Expected end date: ongoing Interventions: Your nurse will assess your risk for falls/injury each visit Be aware of medications that could predispose you to falling Wear non-skid/rubber sole footwear Keep personal items within easy reach Use some light at night in your room Care Teams Coordinating Producer Relationship Specialty Start Date End Date Davide Mendiola MD [address] [place] [phone] PCP - General Family Medicine 01/22/19
--- OUTSIDE RECORDS SUMMARY | 2024-10-19 12:33 | XMS_ITS | Referral Summary ---
Author Organization [facility] Address [address] [place] [address] Care Team Providers Care Immunology Specialist Name Role Phone Davide Mendiola MD Primary Care Provider [phone] Source Comments [facility]ates and Associated Physician Practices is amultiple site organization consisting of ambulatory clinics and hospital sitesin [place], [place], [place] and [place]. This disclosure is being madepursuant to the Care Everywhere program and may not contain all information available regarding this patient. Last updated 18.[facility] Allergies Active Allergy Reactions Criticality Noted Date [...] Noted Date Diagnosed Date Hepatic hemangioma 02/05/2019 Social History Tobacco Use Types Packs/Day Years [...] Comments Blood Pressure 114/78 09/12/2019 12:41 PM PROBATE CLERK Pulse 100 09/12/2019 12:41 PM PROBATE CLERK Temperature 37 C (98.6 F) 09/12/2019 12:41 PM PROBATE CLERK Respiratory Rate 18 09/12/2019 12:41 PM PROBATE CLERK Oxygen Saturation 98% 09/12/2019 12:41 PM PROBATE CLERK Inhaled Oxygen Concentration - - Weight 75.8 kg (167 lb 3.2 oz) 09/12/2019 12:41 PM PROBATE CLERK Height 162.6 cm (5' 4 ) 09/12/2019 12:41 PM PROBATE CLERK Body Mass Index 28.7 09/12/2019 12:41 PM PROBATE CLERK Plan of Treatment Not on file Goals Goal Patient Goal Type Associated Problems Recent Progress Patient-Stated? Author Medication Management General On track( 11:24 AM CDT) No Susy Patrick, BRADLEY Note: Expected end date: ongoing Interventions: Take all medications as prescribed Let your doctor know right away about any changes in your medications Make sure to request a refill of your medication at least one week prior to your last dose Safety General On track( 11:24 AM CDT) No Susy Patrick, BRADLEY Note: Expected end date: ongoing Interventions: Your nurse will assess your risk for falls/injury each visit Be aware of medications that could predispose you to falling Wear non-skid/rubber sole footwear Keep personal items within easy reach Use some light at night in your room Care Teams Immunology Specialist Relationship Specialty Start Date End Date Davide Mendiola MD [address] [place] [phone] PCP - General Family Medicine 01/22/19
--- OUTSIDE RECORDS SUMMARY | 2024-10-19 12:33 | XMS_ITS | Patient Health Summary ---
Author Organization [facility] Address [address] [place] [address] Care Team Providers Care Lamination Assembler Name Role Phone Davide Mendiola MD Primary Care Provider [phone] Note from [facility],non-owned Affiliates and Associated Physician Practices is amultiple site organization consisting of ambulatory clinics and hospital sitesin [place], [place], [place] and [place]. This disclosure is being madepursuant to the Care Everywhere program and may not contain all information available regarding this patient. Last updated 18.[facility] Allergies * Sulfa Drugs * Tetracyclines Medications * Be aware that medications may not be up to date on this document. Alwaysverify current medications with the patient. * Levothyroxine Sodium (SYNTHROID PO) Take 0.05 mg by mouth * ClonazePAM (KLONOPIN PO) Take by mouth as needed * PARoxetine (PAXIL) 40 MG tablet Take 40 mg by mouth once daily Reasons: Panic Disorder * Multiple Vitamins-Minerals (HAIR/SKIN/NAILS) TABS * acetaminophen (TYLENOL) 500 MG tablet Take 500 mg by mouth every 4 hours as needed for Fever or Pain Maximum allowable Acetaminophen amount = 4 Grams (4000 mg) / 24 hours. Active Problems Problem Noted Date Diagnosed Date [...] Comments Blood Pressure 114/78 09/12/2019 12:41 PM VICE PRESIDENT OF CONSULTING SERVICES Pulse 100 09/12/2019 12:41 PM VICE PRESIDENT OF CONSULTING SERVICES Temperature 37 C (98.6 F) 09/12/2019 12:41 PM VICE PRESIDENT OF CONSULTING SERVICES Respiratory Rate 18 09/12/2019 12:41 PM VICE PRESIDENT OF CONSULTING SERVICES Oxygen Saturation 98% 09/12/2019 12:41 PM VICE PRESIDENT OF CONSULTING SERVICES Inhaled Oxygen Concentration - - Weight 75.8 kg (167 lb 3.2 oz) 09/12/2019 12:41 PM VICE PRESIDENT OF CONSULTING SERVICES Height 162.6 cm (5' 4 ) 09/12/2019 12:41 PM VICE PRESIDENT OF CONSULTING SERVICES Body Mass Index 28.7 09/12/2019 12:41 PM VICE PRESIDENT OF CONSULTING SERVICES Procedures * MRI ABDOMEN WWO CONTRAST(Performed 08/04/2019) Performed for Hepatic hemangioma, Upper abdominal pain * CREATININE BLOOD - POCT (IP) [facility](Performed 08/04/2019) Performed for Hepatic hemangioma, Upper abdominal pain * CULTURE URINE(Performed 08/08/2017) Performed for Dysuria * URINALYSIS AUTO - POINT OF CARE (AMB) [facility](Performed 08/08/2017) Performed for Dysuria Results * MRI ABDOMEN WWO CONTRAST (08/04/2019 3:21 PM VICE PRESIDENT OF CONSULTING SERVICES) Anatomical Region Laterality Modality Abdomen Magnetic Resonan ce 08/05/2019 7:47 AM VICE PRESIDENT OF CONSULTING SERVICES Impressions 08/05/2019 4:50 PM VICE PRESIDENT OF CONSULTING SERVICES IMPRESSION: 1. 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 2. Two additional subcentimeter hemangiomas in hepatic segment 2. Dictated by Butch Ortiz MD (vice president of advertising). This report was approved by Butch Ortiz M.D. on 08/05/2019 10:33 AM . I, Dr. Rick BHATIA M.D. have personally reviewed and interpreted this examination/study. This report was electronically signed by Rick BHATIA M.D. on 08/05/2019 4:50 PM . Narrative 08/05/2019 4:50 PM VICE PRESIDENT OF CONSULTING SERVICES EXAMINATION: Magnetic resonance imaging (MRI) of the abdomen without and with contrast HISTORY: Large hepatic hemangioma with bilateral flank pain. Follow-up. TECHNIQUE: MRI of the abdomen was performed prior to and following the uneventful administration of 14 mL of Multihance intravenous gadolinium contrast according to standard protocol. COMPARISON: MRI of the liver dated November 04, 2018. FINDINGS: The visible lung bases are clear. There is no evidence of hepatic steatosis. In the right hepatic lobe, there is a T2 hyperintense lesion in hepatic segments 5, 6, 7, and 8 measuring 10.7 cm TV by 8.5 cm AP (series 13, image 13) by 10.3 cm CC (series 3, image 14). This is grossly unchanged in size when compared to the prior examination. This lesion demonstrates peripheral discontinuous and nodular enhancement with centripetal filling on the delayed images and is consistent with a giant hemangioma. An 8 mm hemangioma is also seen in hepatic segment 2 (series 7, image 22 and series 3, image 20). A 6 mm T2 hyperintense lesion in hepatic segment 2 (series 5, image 30 and series 3, image 22) also likely represents a small hemangioma. The intrahepatic and extrahepatic bile ducts are nondilated. The hepatic arterial anatomy is conventional. The portal vein and its major branches are patent. The hepatic veins are patent. The gallbladder, spleen, pancreas, adrenal glands, and kidneys are normal. No free intraperitoneal fluid is identified. Procedure Note Lillian Bhatia MD - 08/05/2019 EXAMINATION: Magnetic resonance imaging (MRI) of the abdomen without and with contrast HISTORY: Large hepatic hemangioma with bilateral flank pain. Follow-up. TECHNIQUE: MRI of the abdomen was performed prior to and following the uneventful administration of 14 mL of Multihance intravenous gadolinium contrast according to standard protocol. COMPARISON: MRI of the liver dated November 04, 2018. FINDINGS: The visible lung bases are clear. There is no evidence of hepatic steatosis. In the right hepatic lobe, there is a T2 hyperintense lesion in hepatic segments 5, 6, 7, and 8 measuring 10.7 cm TV by 8.5 cm AP (series 13, image 13) by 10.3 cm CC (series 3, image 14). This is grossly unchanged in size when compared to the prior examination. This lesion demonstrates peripheral discontinuous and nodular enhancement with centripetal filling on the delayed imagesand is consistent with a giant hemangioma. An 8 mm hemangioma is also seen in hepatic segment 2 (series 7, image 22 and series 3, image 20). A 6 mm T2 hyperintense lesion in hepaticsegment 2 (series 5, image 30 and series 3, image 22) also likely represents a small hemangioma. The intrahepatic and extrahepatic bile ducts are nondilated. The hepatic arterial anatomy is conventional. The portal vein and its major branches are patent. The hepatic veins are patent. The gallbladder, spleen, pancreas, adrenal glands, and kidneys arenormal. No free intraperitoneal fluid is identified. IMPRESSION: 1. 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 2. Two additional subcentimeter hemangiomas in hepatic segment 2. Dictated by Butch Ortiz MD (vice president of advertising). This report was approved by Butch Ortiz M.D. on 08/05/2019 10:33 AM. IDr. Rick M.D. have personally reviewed and interpretedthis examination/study. This report was electronically signed by Rick BHATIA M.D. on 08/05/2019 4:50 PM . Elsie Guevara MD MR ORDERABLES * CREATININE BLOOD - POCT (IP) [facility] (08/04/2019 2:33 PM VICE PRESIDENT OF CONSULTING SERVICES) Creatinine POCT 0.85 0.3 - 1.3 mg/dL [facility] POCT TESTING eGFR POCT 60 60 ml/min [facility] Blood BLOOD SPECIMEN / Unknown 08/04/2019 2:33 PM VICE PRESIDENT OF CONSULTING SERVICES Elsie Guevara MD LAB - POINT OF CARE ORDERABLES [facility] [address] [phone] * (ABNORMAL) CULTURE URINE (08/08/2017 2:24 PM VICE PRESIDENT OF CONSULTING SERVICES) Urine Culture Routine Final report(A) [facility] ACCOUNT BILL Result 1 Klebsiella pneumoniae(A) [facility] ACCOUNT BILL Comment:Greater than 100,000 colony forming units per mL Antimicrobial Susceptibility [facility] ACCOUNT BILL Comment: S = Susceptible; I = Intermediate; R = Resistant P = Positive; N = Negative MICS are expressed in micrograms per mL Antibiotic RSLT#1 RSLT#2 RSLT#3 RSLT#4 Amoxicillin/Clavulanic Acid S Ampicillin R Cefepime S Ceftriaxone S Cefuroxime S Cephalothin S Ciprofloxacin S Ertapenem S Gentamicin S Imipenem S Levofloxacin S Nitrofurantoin I Piperacillin S Tetracycline S Tobramycin S Trimethoprim/Sulfa S Urine URINE SPECIMEN OBTAINED BY CLEAN CATCH PROCEDURE / Unknown 08/08/2017 2:24 PM VICE PRESIDENT OF CONSULTING SERVICES 08/08/2017 Narrative Resulting Agency Comment [facility] [address] [facility] [phone] Tena Cortez MAGICIAN HELPER-CHILD CARE EDUCATION COORDINATOR LAB - MICROBIOL OGY ORDERABLES [facility] ACCOUNT BILL [address] [place] [address] * (ABNORMAL) URINALYSIS AUTO - POINT OF CARE (AMB) [facility] (08/08/2017) Clarity UA POCT clear Color UA POCT yellow Leukocyte UA neg Negative Nitrite UA POCT neg Negative Urobilinogen UA 0.2 0.1 - 1.0 Protein UA POCT neg Negative pH UA 5.0 5.0 - 8.0 pH units Blood UA neg Negative Specific [place] UA POCT 1.000(A) 1.002 - 1.030 Ketone UA neg Negative Bilirubin UA POCT neg Negative Glucose UA neg Negative Expiration Date [id number] Lot # [id number] QC Verified Yes Yes URINE / Unknown 08/08/2017 Tena Cortez MAGICIAN HELPER-CHILD CARE EDUCATION COORDINATOR LAB - POINT OF CARE ORDERABLES Care Teams Lamination Assembler Relationship Specialty Start Date End Date Davide Mendiola MD [address] [place] [phone] PCP - General Family Medicine 01/22/19
[2024-10-19 12:51] LABS: Alanine Aminotransferase 14 U/L (14-59); Albumin Level 3.5 g/dL (3.4-5.0); Alkaline Phosphatase 65 U/L (46-116); Anion Gap 8 mmol/L (4-12); Aspartate Amino Transferase 12 U/L (15-37); Bilirubin,Total 0.5 mg/dL (0.00-1.00); Blood Urea Nitrogen 6 mg/dL (7-18); Calcium 9.2 mg/dL (8.5-10.1); Carbon Dioxide 31 mmol/L (21-32); Chloride 100 mmol/L (98-108); Estimated CRCL calculation 63 ml/min; Estimated Glomerular Filt Rate > 60; Glucose 90 mg/dL (70-99); Osmolality Calculated 285 mOsm/kg (285-295); Sodium 139 mmol/L (136-145); Total Protein 7.5 g/dL (6.4-8.2)
[2024-10-19 12:54] LABS: Lactic Acid Reflex 0.8 mmol/L (0.4-2.0)
--- NOTE | 2024-10-19 14:48 | PC.NURSE ---
Antibiotic delayed due to blood cultures.
[2024-10-19] MEDS: PIPERACILLN/TAZ 3.375GM/NS50ML 3.375 GM/50 ML BAG IVPB (15:26)
--- NOTE | 2024-10-19 16:07 | PC.NURSE ---
Patient ambulatory to bathroom and back out, Patient presents at nurses station stating she is going to leave AMA and follow up with surgeon office tomorrow. Patient is alert and oriented able to make decision at this time. ERP notified and spoke with patient regarding risk of leaving at this time.
== END 2024-10-19 16:07 | disposition left against medical advice (07) ==
PROVIDERS: Emergency Provider Internal Medicine Critical Care Medicine; PCP Family Medicine
DX: R22.1 Localized swelling, mass and lump, neck (principal); Z98.1 Arthrodesis status
CPT/HCPCS: 36415; 70491; 80053; 83605; 85025; 87040; 87070; 87205; 96365; 99284; J2543; J7120; Q9967